=== PATIENT | female | born 1955 | race Caucasian/White ===

== ENCOUNTER → 2019-09-18 10:24 | Outpatient (CLI) | payer BC, SELFPAY ==
--- NOTE | ~2019-09-18 | MM_ITS ---
EXAMINATION: MM screening josue BI w connie HISTORY: Screening mammogram TECHNIQUE: Craniocaudal and mediolateral oblique 3-D tomosynthesis images were obtained and synthetic 2-D images were generated. CAD analysis was submitted and interpreted. COMPARISON: 08/13/2016, 12/04/2013 bilateral digital screening mammogram examinations BREAST PARENCHYMAL COMPOSITION: There are scattered areas of fibroglandular density. FINDINGS: There is no evidence of suspicious mass, calcification, or architectural distortion to sugg est malignancy in either breast. There has been no suspicious interval change. IMPRESSION: 1. No mammographic evidence of malignancy. 2. Recommend routine screening mammography in one year. BI-RADS Category 1: Negative Reviewed, dictated and finalized at location A. [facility] [employer]
== END ==
PROVIDERS: Visit Provider Advanced Practice Midwife
DX: Z12.31 Encounter for screening mammogram for malignant neoplasm of breast (principal)
CPT/HCPCS: 77063; 77067

== ENCOUNTER 2020-04-09 14:36 | Outpatient (CLI) | payer BC, SELFPAY ==
--- NOTE | ~2020-04-09 | XR_ITS ---
EXAMINATION: XR chest 2V 04/09/2020 14:59 INDICATION: Bilateral rib pain and flank pain PROCEDURE: 2 views of the chest COMPARISON: 07/11/2015 FINDINGS: The lungs are clear. The cardiomediastinal silhouette is within normal limits. There are no pleural effusions. There is no pneumothorax suspected. IMPRESSION: 1: NO ACUTE CARDIOPULMONARY DISEASE. Reviewed, dictated and finalized at location A.
== END 2020-04-09 14:37 | disposition home or self-care (01) ==
PROVIDERS: PCP Family Medicine; Visit Provider Family Medicine
DX: R07.81 Pleurodynia (principal)
CPT/HCPCS: 71046

== ENCOUNTER → 2020-04-16 10:45 | Outpatient (CLI) | payer BC, SELFPAY ==
--- NOTE | ~2020-04-16 | US_ITS ---
US abdomen complete DATE: 04/16/2020 11:14 INDICATION: Right upper quadrant abdominal pain TECHNIQUE: Real-time imaging and Doppler analysis of the abdomen COMPARISON: 11/28/2015 Limited abdominal ultrasound examination FINDINGS: No hepatic or pancreatic space-occupying mass lesion. Normal hepatopedal portal venous flow direction. No gallstones or gallbladder wall thickening or abnormal pericholecystic fluid collection . Negative sonographic Torres's sign. The common bile duct measures 3.1 mm, normal. Normal caliber of the abdominal aorta. The inferior vena cava is not well demonstrated. Normal splenic size. The right kidney measures approximately 9.5 cm length, the left kidney approximately 10.4 cm. Approxi mately 1 x 1.3 cm left renal cyst. IMPRESSION: Approximately 1.3 cm left renal cyst; otherwise unremarkable examination Reviewed, dictated and finalized at Location A. Reviewed, dictated and finalized at location B. IMPRESSION: Approximately 1.3 cm left renal cyst; otherwise unremarkable examin ation
== END ==
PROVIDERS: PCP Family Medicine; Visit Provider Family Medicine
DX: R10.10 Upper abdominal pain, unspecified (principal); N28.1 Cyst of kidney, acquired
CPT/HCPCS: 76700

== ENCOUNTER 2020-05-06 01:23 | Outpatient (CLI) | payer BC, SELFPAY ==
[2020-05-06 17:41] LABS: SARS-CoV-2 RNA PCR Negative
== END 2020-05-06 01:24 | disposition home or self-care (01) ==
LOC: ANHCOVIDDT 01:23
PROVIDERS: PCP Family Medicine; Visit Provider Internal Medicine Gastroenterology
DX: Z01.812 Encounter for preprocedural laboratory examination (principal); Z20.828 Contact with and (suspected) exposure to other viral communicable diseases
CPT/HCPCS: 87635; C9803; U0003

== ENCOUNTER 2020-05-08 01:50 | Day surgery (SDC) | payer BC, SELFPAY ==
[2020-05-01 14:30] VITALS: BMI 30.4
[2020-05-08 12:04] VITALS: BP 126/46; PULSE 58; RESP 18; TEMP 36.7; O2SAT 100; BMI 30.8
[2020-05-08] MEDS: LACTATED RINGERS 1,000 ML 150 ML IV CONT (12:17)
--- NOTE | 2020-05-08 12:25 | WPDANESEPPF ---
Anes - Initial Pre Proc Eval Procedure: Operation Date: 05/08/20 13:00 Proposed Procedures p Screening Colonoscopy - Baltazar Cadet MD Date/Time: 05/08/20 12:25 Surgeon: Baltazar Cadet MD Pre Op Diagnosis: Neoplasm Screening Patient Data Age: 64 Gender: F Height: 5 ft 8 in Weight: 92 kg Last Vital Signs Temp 98.1 F 05/08/20 12:04 Pulse 58 L 05/08/20 12:04 Resp 18 05/08/20 12:04 BP 126/46 L 05/08/20 12:04 Pulse Ox 100 05/08/20 12:04 Allergies Allergy/AdvReac Type Severity Reaction Status Date / Time No Known Allergies Allergy Verified 05/08/20 12:03 Home Medications Medication Instructions Recorded Confirmed Type apixaban 5 mg tablet 5 mg PO BID 04/05/20 05/08/20 History lisinopril 20 mg tablet 20 mg PO DAILY 04/05/20 05/01/20 History metoprolol tartrate 100 mg tablet 100 mg PO DAILY 04/05/20 05/01/20 History simvastatin 40 mg tablet 40 mg PO DAILY 04/05/20 05/01/20 History spironolactone 25 mg tablet 25 mg PO DAILY 04/05/20 05/01/20 History polyethylene glycol 3350 17 gram 238 g PO DAILY #1 packet 04/16/20 05/01/20 Rx oral powder packet calcium carbonate-vitamin D3 1 tablet PO DAILY 05/01/20 05/01/20 History [Calcium 500 + D] melatonin 5 mg HS 05/01/20 05/01/20 History omeprazole magnesium [Prilosec OTC] 20 mg PO DAILY 05/01/20 05/01/20 History turmeric 400 mg PO DAILY 05/01/20 05/01/20 History vit H-jtowxpa-cytq-rutin-hb196 1 tablet PO DAILY 05/01/20 05/01/20 History [Bioflex] sodium,potassium,mag sulfates 17.5 See Rx Instructions PO .COMPLEX 05/03/20 Rx gram-3.13 gram-1.6 gram oral soln #354 ml Patient hx anesthesia problems: none Family hx anesthesia problems: none PMFSH Past Medical History Medical History (Updated 05/08/20 @ 12:24 by Deangelo Stevens MD) Atrial fibrillation pt states has cardiomyopathy and AF; not dcumented in chart; see cardiology at [facility] GERD (gastroesophageal reflux disease) HLD (hyperlipidemia) (06/29/11) HTN (hypertension) (06/29/11) Idiopathic cardiomyopathy Surgical History Surgical History History of left oophorectomy History of lumbar surgery History of tubal ligation History of vein stripping L5 Presence of right artificial knee joint Family History Family History Father Hypertension Mother Hypertension Family history of coronary artery disease Other Cerebrovascular accident Family history of arthritis Family history of cardiovascular disease Family history of elevated blood lipids Family history of gout Social History Social History Smoking status: Never smoker Alcohol intake: current Alcohol use details: Rarely Substance use: never Substance use type: does not use Gender identity (if verbalized by the patient): Female Anes - Eval Final PreProcedure Day of Procedure 05/08/20 12:25 Patient weight: normal Heart: regular rate and rhythm Lungs: clear to auscultation Airway: Mallampati scale class II Neurological: alert and oriented Last oral intake: >/= 8 hours ASA classification: III Emergent: no Anesthetic plan: proceed Anesthesia type and monitoring: general GIVS and standard monitoring Informed Consent: The patient's anesthetic plan and its attendant risks and benefits were discussed with the patient/family/POA. Questions were solicited and answers provided to the satisfaction of the patient/family/POA.
--- NOTE | 2020-05-08 12:56 | PM.HPGS ---
History of Present Illness History of Present Illness Consent: Risks, benefits, and alternatives have been discussed and questions answered. Patient agrees to proceed with procedure. Chief complaint: Neoplasm Screening Narrative: Madiha Carney is a 64 year old female here for colonoscopy, last one 6 years ago Review of Systems Constitutional: Constitutional: Denies headache(s) and Denies weakness Eyes: Eyes: Denies blurry vision ENT: Reports Normal hearing present, Denies headache(s) and Denies neck pain Cardiovascular: Cardiovascular: Denies chest pain and Denies dyspnea Respiratory: Respiratory: Denies dyspnea Gastrointestinal: Gastrointestinal: Reports no additional gastrointestinal complaints Genitourinary: Genitourinary: Denies dysuria Musculoskeletal: Musculoskeletal: Denies neck pain Integumentary/Breasts: Skin/Breast: Denies dry skin Neurologic: Reports Normal hearing present, Denies headache(s) and Denies weakness Psychiatric: Psychiatric: Denies anxiety Endocrine: Endocrine: Denies change in body appearance Hematologic/Lymphatic: Hematologic/Lymphatic: Denies easy bleeding Allergic/Immunologic: Allergic/Immunologic: Denies urticaria PMFSH Past Medical History Medical History (Updated 05/08/20 @ 12:56 by Baltazar Cadet MD) Atrial fibrillation pt states has cardiomyopathy and AF; not dcumented in chart; see cardiology at [facility] Colon cancer screening GERD (gastroesophageal reflux disease) HLD (hyperlipidemia) (06/29/11) HTN (hypertension) (06/29/11) Idiopathic cardiomyopathy Surgical History Surgical History History of left oophorectomy History of lumbar surgery History of tubal ligation History of vein stripping L5 Presence of right artificial knee joint Family History Family History Father Hypertension Mother Hypertension Family history of coronary artery disease Other Cerebrovascular accident Family history of arthritis Family history of cardiovascular disease Family history of elevated blood lipids Family history of gout Social History Social History Smoking status: Never smoker Alcohol intake: current Alcohol use details: Rarely Substance use: never Substance use type: does not use Gender identity (if verbalized by the patient): Female Meds Home Medications and Allergies Home Medications Medication Instructions Recorded Confirmed Type apixaban 5 mg tablet 5 mg PO BID 04/05/20 05/08/20 History lisinopril 20 mg tablet 20 mg PO DAILY 04/05/20 05/01/20 History metoprolol tartrate 100 mg tablet 100 mg PO DAILY 04/05/20 05/01/20 History simvastatin 40 mg tablet 40 mg PO DAILY 04/05/20 05/01/20 History spironolactone 25 mg tablet 25 mg PO DAILY 04/05/20 05/01/20 History polyethylene glycol 3350 17 gram 238 g PO DAILY #1 packet 04/16/20 05/01/20 Rx oral powder packet calcium carbonate-vitamin D3 1 tablet PO DAILY 05/01/20 05/01/20 History [Calcium 500 + D] melatonin 5 mg HS 05/01/20 05/01/20 History omeprazole magnesium [Prilosec OTC] 20 mg PO DAILY 05/01/20 05/01/20 History turmeric 400 mg PO DAILY 05/01/20 05/01/20 History vit Q-yteetsg-leip-rutin-hb196 1 tablet PO DAILY 05/01/20 05/01/20 History [Bioflex] sodium,potassium,mag sulfates 17.5 See Rx Instructions PO .COMPLEX 05/03/20 Rx gram-3.13 gram-1.6 gram oral soln #354 ml Allergies Allergy/AdvReac Type Severity Reaction Status Date / Time No Known Allergies Allergy Verified 05/08/20 12:03 Vital Signs Vital Signs - 24 hr 05/08/20 12:04 Temperature 98.1 F Pulse Rate 58 L Respiratory Rate 18 Blood Pressure 126/46 L Pulse Oximetry 100 Exam Const: General: comfortable and no acute distress HENMT: General nose exam: Normal nares present Eyes: General: appearance normal, both
[2020-05-08 13:16] VITALS: BP 92/55; PULSE 76; RESP 18; O2SAT 98
[2020-05-08 13:26] VITALS: BP 96/51; PULSE 79; RESP 16; O2SAT 98
[2020-05-08 13:36] VITALS: BP 120/65; PULSE 78; RESP 18; O2SAT 98
== END 2020-05-08 13:53 | disposition home or self-care (01) ==
PROVIDERS: PCP Family Medicine; Visit Provider Internal Medicine Gastroenterology
PROC: 0DJD8ZZ Inspection of Lower Intestinal Tract, Via Natural or Artificial Opening Endoscopic (ICD-10-PCS; CPT 45378; principal; 2020-05-08 13:00)
DX: Z12.11 Encounter for screening for malignant neoplasm of colon (principal); K64.8 Other hemorrhoids; I48.91 Unspecified atrial fibrillation; I10 Essential (primary) hypertension; E78.5 Hyperlipidemia, unspecified; I42.9 Cardiomyopathy, unspecified; K21.9 Gastro-esophageal reflux disease without esophagitis; Z79.01 Long term (current) use of anticoagulants
CPT/HCPCS: 45378; J2704; J7120

== ENCOUNTER 2022-03-03 12:53 | Emergency (ER) | payer BC, SELFPAY ==
[2022-03-03 12:57] VITALS: BP 148/64; PULSE 86; RESP 14; TEMP 36.6; O2SAT 98
--- NOTE | 2022-03-03 13:56 | ED.WOUNDLAC ---
HPI - Wound/Laceration General Chief Complaint: Wound/Laceration <Janneth Vasquez MD - Last Filed: 03/03/22 22:25> Stated Complaint: bleeding varicose vein <Janneth Vasquez MD - Last Filed: 03/03/22 22:25> Time Seen by Provider: 03/03/22 13:32 <Janneth Vasquez MD - Last Filed: 03/03/22 22:25> Source: patient and RN notes reviewed <Janneth Vasquez MD - Last Filed: 03/03/22 22:25> Mode of arrival: EMS <Janneth Vasquez MD - Last Filed: 03/03/22 22:25> Limitations: no limitations <Janneth Vasquez MD - Last Filed: 03/03/22 22:25> History of Present Illness HPI narrative: This is a 66 year old female with history of atrial fibrillation and cardiomyopathy on Eliquis who presents for evaluation of bleeding left ankle varicose vein. Patient reports she had significant varicose vein on her left ankle. She notes having what looks like a pimple and today it came off. She reports bleeding from area was quirting and they were unable to get bleeding to stop. The area was bandage but she is still having some bleeding. <Janneth Vasquez MD - Last Filed: 03/03/22 22:25> Related Data Home Medications: Home Medications Medication Instructions Recorded Confirmed apixaban 5 mg tablet (Eliquis) 5 mg PO BID 04/05/20 05/08/20 lisinopril 20 mg tablet 20 mg PO DAILY 04/05/20 05/01/20 metoprolol tartrate 100 mg tablet 100 mg PO DAILY 04/05/20 05/01/20 simvastatin 40 mg tablet 40 mg PO DAILY 04/05/20 05/01/20 spironolactone 25 mg tablet 25 mg PO DAILY 04/05/20 05/01/20 calcium carbonate 500 mg-vitamin 1 tablet PO DAILY 05/01/20 05/01/20 D3 10 mcg (400 unit) chewable tablet (Calcium 500 + D) melatonin 5 mg capsule 5 mg HS 05/01/20 05/01/20 omeprazole magnesium 20 mg 20 mg PO DAILY 05/01/20 05/01/20 tablet,delayed release (Prilosec OTC) turmeric 400 mg capsule 400 mg PO DAILY 05/01/20 05/01/20 vit 1 tablet PO DAILY 05/01/20 05/01/20 M-queqtnb-iktjqezzt-rutin-vasw853 500 mg-50 mg-25 mg-40 mg tablet (Bioflex) <Janneth Vasquez MD - Last Filed: 03/03/22 22:25> Allergies/Adverse Reactions: Allergies Allergy/AdvReac Type Severity Reaction Status Date / Time No Known Allergies Allergy Verified 03/03/22 13:01 <Janneth Vasquez MD - Last Filed: 03/03/22 22:25> Review of Systems Review of Systems: All systems reviewed & are unremarkable except as noted in HPI and below <Janneth Vasquez MD - Last Filed: 03/03/22 22:25> [facility] Past Medical History Medical History: Medical History (Updated 03/03/22 @ 16:52 by Janneth Vasquez MD) Atrial fibrillation pt states has cardiomyopathy and AF; not dcumented in chart; see cardiology at [facility] Colon cancer screening GERD (gastroesophageal reflux disease) HLD (hyperlipidemia) (06/29/11) HTN (hypertension) (06/29/11) Idiopathic cardiomyopathy <Janneth Vasquez MD - Last Filed: 03/03/22 22:25> Surgical History Surgical History: Surgical History History of left oophorectomy History of lumbar surgery History of tubal ligation History of vein stripping L5 Presence of right artificial knee joint <Janneth Vasquez MD - Last Filed: 03/03/22 22:25> Family History Family History: Family History Father Hypertension Mother Hypertension Family history of coronary artery disease Other Cerebrovascular accident Family history of arthritis Family history of cardiovascular disease Family history of elevated blood lipids Family history of gout <Janneth Vasquez MD - Last Filed: 03/03/22 22:25> Social History Social History: Social History Smoking status: Never smoker Alcohol intake: current Alcohol use details: Rarely Substance use: never Substance use type: does not use Gender identity (if verbal
[2022-03-03] MEDS: ONDANSETRON HCL ODT 4 MG TABLET PO (14:11)
[2022-03-03] MEDS: TETANUS,DIPHTHERIA,AC PERTUSSIS ADULT (0.5 ML) BOOSTRIX IM (14:11)
[2022-03-03] MEDS: HYDROcodone/acetaminophen (*CRX) 5-325 MG TABLET 1 TAB PO (14:15)
[2022-03-03] MEDS: LIDOCAINE, EPINEPHRINE, TETRACAINE VISCOUS SOLN 3 ML TOPICAL (15:48)
[2022-03-03] MEDS: CELLULOSE OXIDIZED 2 x 14 INCH 1 PKT XX (15:48)
--- NOTE | 2022-03-03 15:51 | PC.NURSE ---
Addendum entered by Zandra Schultz RN 03/03/22 16:34: patient privacy Original Note: Pt family was using hospital wheelchair to sit in hallway. 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
== END 2022-03-03 17:00 | disposition home or self-care (01) ==
PROVIDERS: Emergency Provider General Practice; PCP Family Medicine
DX: I83.892 Varicose veins of left lower extremity with other complications (principal); Z23 Encounter for immunization; I48.91 Unspecified atrial fibrillation; E78.5 Hyperlipidemia, unspecified; I10 Essential (primary) hypertension; I42.8 Other cardiomyopathies; K21.9 Gastro-esophageal reflux disease without esophagitis; Z90.721 Acquired absence of ovaries, unilateral; Z96.651 Presence of right artificial knee joint; Z79.01 Long term (current) use of anticoagulants
CPT/HCPCS: 12001; 90471; 90715; 99283; A9270

== ENCOUNTER 2022-09-28 08:02 | Outpatient (CLI) | payer MEDICARE, SELFPAY ==
[2022-09-28 08:52] LABS: Alanine Aminotransferase 27 U/L (14-59); Albumin Level 4.2 g/dL (3.4-5.0); Alkaline Phosphatase 63 U/L (46-116); Anion Gap 7 mmol/L (8-16); Aspartate Amino Transferase 17 U/L (15-37); Bilirubin,Total 0.5 mg/dL (0.00-1.00); Blood Urea Nitrogen 19 mg/dL (7-18); Calcium 9.5 mg/dL (8.5-10.1); Carbon Dioxide 30 mmol/L (21-32); Chloride 107 mmol/L (98-108); Cholesterol 176 mg/dL (0-200); Estimated Glomerular Filt Rate > 60; Glucose 87 mg/dL (70-99); HDL Direct 75 mg/dL (40-60); LDL Cholesterol Calculated 86 mg/dL (<130); Osmolality Calculated 299 mOsm/kg (285-295); Potassium 4.2 mmol/L (3.5-5.1); Sodium 144 mmol/L (136-145); Total Protein 7.4 g/dL (6.4-8.2); Triglycerides 74 mg/dL (0-150)
== END 2022-09-28 08:03 | disposition home or self-care (01) ==
LOC: CHSLAB 08:08
PROVIDERS: PCP Nurse Practitioner Family
DX: E78.2 Mixed hyperlipidemia (principal)
CPT/HCPCS: 36415; 80053; 80061

== ENCOUNTER 2022-12-10 09:42 | Outpatient (CLI) | payer MEDICARE, SELFPAY ==
[2022-12-10 10:40] LABS: Rheumatoid Factor Screen Negative (Negative)
[2022-12-10 10:54] LABS: Free T4 Free Thyroxine 1.23 ng/dL (0.76-1.46); Thyroid Stimulating Hormone 2.11 uIU/mL (0.36-3.74)
[2022-12-10 10:55] LABS: CRP < 0.5 mg/dL (0.0-0.9)
[2022-12-15 19:49] LABS: Vitamin D 25 Hydroxy 73 ng/mL (30-100)
== END 2022-12-10 09:43 | disposition home or self-care (01) ==
LOC: CHSLAB 09:45
PROVIDERS: PCP Nurse Practitioner Family; Visit Provider Nurse Practitioner Family
DX: R63.5 Abnormal weight gain (principal); Z79.899 Other long term (current) drug therapy; M89.8X9 Other specified disorders of bone, unspecified site
CPT/HCPCS: 36415; 82306; 84439; 84443; 86038; 86140; 86430

== ENCOUNTER → 2022-12-16 13:03 | Outpatient (CLI) | payer MEDICARE, OTHER, SELFPAY ==
--- NOTE | ~2022-12-16 | DEXA_ITS ---
Bone Density Report Name: LINO REGALADO Age: 67 Sex: Female Ethnicity: White Date of : 1955 Indication: postmenopausal; screening for osteoporosis; parental hip fracture; height loss; Referring Provider: Yoselyn, Mariia Ly Study: Bone densitometry was performed. Exam Date: December 16, 2022 Accession number: [id number] Bone Density: Region BMD T-score Z-score Classification AP Spine (L1-L4) 1.121 0.7 2.4 Normal Femoral Neck (Left) 1.009 1.4 3.0 Normal Total Hip (Left) 1.077 1.1 2.3 Normal Femoral Neck (Right) 0.911 0.6 2.1 Normal Total Hip (Right) 1.005 0.5 1.8 Normal Total Hip Mean 1.041 0.8 2.1 Normal World Health Organization criteria for BMD impression classify patients as: Normal (T-score at or above -1.0), Osteopenia (T-score between -1.0 and -2.5), or Osteoporosis (T-score at or below -2.5). 10-year Fracture Risk: FRAX not reported because: All T-scores for Spine Total, Hip Total, Femoral Neck at or above -1.0 Previous Exams: Region Exam Age BMD T-score BMD Change BMD Change Date g/cm2 vs Baseline vs Previous AP Spine(L1-L4) 12/16/2022 67 1.121 0.7 0.043* 0.043* 07/06/2011 55 1.077 0.3 Total Hip(Left) 12/16/2022 67 1.077 1.1 -0.043* -0.043* 07/06/2011 55 1.120 1.5 Total Hip(Right) 12/16/2022 67 1.005 0.5 -0.028* -0.028* 07/06/2011 55 1.033 0.7 *Denotes significance at 95% confidence level, LSC for AP Spine = 0.022 g/cm2, LSC for Total Hip = 0.027 g/cm2 Clinical Information Provided by Patient: Parent has had a hip fracture Has used the following medications: Calcium, MTV Patient maximum height was 68.0 Menopause Age: 46 No regular weight bearing exercise Drinks caffeinated beverages Onset of menses at age 17 Number of children 2 Impression: The patient has normal bone mass. The patient has risk factors, including: parental hip fracture. The BMD for the Total Hip(Left) decreased, changing by -0.043 since the last DXA exam. The BMD for the Total Hip(Right) decreased, changing by -0.028 since the last DXA exam. Discussion: BONE DENSITY IS ABOVE THE MINIMUM DESIRABLE LEVEL AT ALL SKELETAL SITES TESTED. This patient?s bone mineral density is above the minimum desirable level (T-score -1.0 or better) at all sites measured. The patient should follow a healthful lifestyle (good nutrition with adequate calcium and vitamin D, and appropriate weight-bearin
--- NOTE | ~2022-12-16 | MM_ITS ---
EXAMINATION: MM screening josue BI w connie HISTORY: Screening mammogram TECHNIQUE: Craniocaudal and mediolateral oblique 3-D tomosynthesis images were obtained and synthetic 2-D images were generated. CAD analysis was submitted and interpreted. COMPARISON: 09/18/2019, 08/13/2016, 12/04/2013 bilateral screening mammogram examinations BREAST PARENCHYMAL COMPOSITION: There are scattered areas of fibroglandular density. FINDINGS: There is no evidence of suspicious mass, calcification, or architectural distortion to sugg est malignancy in either breast. There has been no suspicious interval change. IMPRESSION: 1. No mammographic evidence of malignancy. 2. Recommend routine screening mammography in one year. BI-RADS Category 1: Negative Reviewed, dictated and finalized at location A.
== END ==
PROVIDERS: PCP Nurse Practitioner Family; Visit Provider Nurse Practitioner Obstetrics & Gynecology
DX: Z12.31 Encounter for screening mammogram for malignant neoplasm of breast (principal); Z78.0 Asymptomatic menopausal state; M81.0 Age-related osteoporosis without current pathological fracture
CPT/HCPCS: 77063; 77067; 77080

== ENCOUNTER 2023-11-05 09:09 | Outpatient (CLI) | payer MEDICARE, OTHER, SELFPAY ==
--- NOTE | ~2023-11-05 | XR_ITS ---
AP view of the pelvis and AP and lateral views of the bilateral hips Clinical history: Pain Findings: No acute fracture or dislocation is seen. There is moderate degenerative change of the left hip joint. There is minimal degenerative change of the right hip joint. Soft tissues are unremarkabl e. Impression: Moderate left hip joint degenerative change. Minimal right hip joint degenerative change. Reviewed, dictated and finalized at location . Impression: Moderate left hip joint degenerative change. Minimal right hip joint degenerative change.
--- NOTE | ~2023-11-05 | XR_ITS ---
Left Knee Technique: AP, lateral, and sunrise views were obtained. Clinical History: Osteoarthritis Findings: No fracture or dislocation is seen. There is advanced tricompartmental osteophyte formation with medial compartment narrowing.. Small joint effusion is seen. Impression: Advanced tricompartmental osteoarthritis. Small joint effusion. Reviewed, dictated and finalized at location . Impression: Advanced tricompartmental osteoarthritis. Small joint effusion.
== END 2023-11-05 09:10 | disposition home or self-care (01) ==
LOC: ANHIMG 09:15
PROVIDERS: PCP Orthopaedic Surgery; Visit Provider Orthopaedic Surgery
DX: M17.12 Unilateral primary osteoarthritis, left knee (principal); M16.0 Bilateral primary osteoarthritis of hip; M25.462 Effusion, left knee
CPT/HCPCS: 73521; 73564

== ENCOUNTER 2024-02-09 09:33 | Outpatient (CLI) | payer MEDICARE, OTHER, SELFPAY ==
--- NOTE | 2024-02-09 10:04 | ECG_ITS ---
Test Date: 2024-02-09 10:08:54 Measurements Intervals [place] Rate: 61 P: 19 MS: 156 QRS: -24 QRSD: 146 T: 11 QT: 413 QTc: 418 Interpretive Statements SINUS RHYTHM LEFT BUNDLE BRANCH BLOCK ABNORMAL ECG No previous ECG available for comparison Electronically Signed On 02-09-2024 12:30:55 CDT by Awais Amador D.O.
[2024-02-09 10:18] LABS: Hematocrit 41.1 % (37.0-47.0); Hemoglobin 13.7 g/dL (12.0-15.0)
[2024-02-09 10:31] LABS: Albumin Level 4.8 g/dL (3.5-5.1); Estimated Glomerular Filt Rate > 60; Glucose 86 mg/dL (65-110)
== END 2024-02-09 09:34 | disposition home or self-care (01) ==
PROVIDERS: PCP Nurse Practitioner Family; Visit Provider Orthopaedic Surgery
DX: I10 Essential (primary) hypertension (principal); M16.12 Unilateral primary osteoarthritis, left hip; E78.5 Hyperlipidemia, unspecified; I44.7 Left bundle-branch block, unspecified; Z01.818 Encounter for other preprocedural examination
CPT/HCPCS: 36415; 82040; 82565; 82947; 85014; 85018; 93005

== ENCOUNTER 2024-05-08 13:38 | Outpatient (CLI) | payer MEDICARE, OTHER, SELFPAY ==
--- NOTE | ~2024-05-08 | XR_ITS ---
XR knee LT min 4V Ordering provider: Herrera Bernard MD History: . M17.12 - Unilateral primary osteoarthritis, left knee . Comparison: November 05, 2023 FINDINGS: BONES: No acute fracture or dislocation. JOINT SPACES: Narrowing of the medial compartment. Marginal osteophyte in the suprapatellar. SOFT TISSUES: Serpiginous shadows are seen in the subcutaneous tissues suggestive of varicosities. Cl inical evaluation advised. IMPRESSION: No acute osseous abnormality left knee. Severe osteoarthritic changes. Reviewed, dictated and finalized at location A.
== END 2024-05-08 13:39 | disposition home or self-care (01) ==
LOC: ANHIMG 13:41
PROVIDERS: PCP Clinical Nurse Specialist; Visit Provider Orthopaedic Surgery
DX: M17.12 Unilateral primary osteoarthritis, left knee (principal)
CPT/HCPCS: 73564

== ENCOUNTER 2024-06-29 08:22 | Outpatient (CLI) | payer MEDICARE, OTHER, SELFPAY ==
[2024-06-29 13:36] LABS: Basophils Percent Auto 0.6 % (0.2-1.2); Eosinophils Absolute Auto 0.1 K/mm3 (0-0.3); Eosinophils Percent Auto 1.5 % (0-4.4); Hematocrit 40.3 % (37.0-47.0); Hemoglobin 12.9 g/dL (12.0-15.0); Immature Granulocyte Absolute 0.01 K/mm3 (0.00-0.031); Immature Granulocyte Percent A 0.2 % (0-0.5); Lymphocytes Absolute Auto 1.59 K/mm3 (0.9-3.2); Lymphocytes Percent Auto 29.7 % (18.3-44.2); Mean Corpuscular Hemoglobin 30.5 pg (26-34); Mean Corpuscular Volume 95.3 fl (80-100); Mean Platelet Volume 10.6 fl (7.4-10.4); Monocytes Absolute Auto 0.4 K/mm3 (0.1-0.6); Monocytes Percent Auto 7.6 % (2.6-8.5); Neutrophils Absolute Auto 3.2 K/mm3 (1.3-6.7); Neutrophils Percent Auto 60.4 % (45.5-73.1); Platelet Count Result 243 k/mm3 (150-375); Red Blood Count 4.23 M/mm3 (4.2-5.4); Red Cell Distribution Width 12.3 % (11.5-14.5); White Blood Count 5.4 K/mm3 (4.5-10.0)
[2024-06-29 13:59] LABS: Rheumatoid Factor < 12.0 IU/ML (<12)
[2024-06-29 14:01] LABS: Alanine Aminotransferase 21 U/L (6-35); Albumin Level 4.6 g/dL (3.5-5.1); Alkaline Phosphatase 68 U/L (38-126); Anion Gap 4 mmol/L (4-12); Aspartate Amino Transferase 54 U/L (14-36); Bilirubin,Total 0.6 mg/dL (0.2-1.3); Blood Urea Nitrogen 24 mg/dL (7-17); CRP < 0.5 mg/dL (<1.0); Calcium 9.7 mg/dL (8.4-10.2); Carbon Dioxide 28 mmol/L (22-30); Chloride 107 mmol/L (98-107); Cholesterol 252 mg/dL (0-200); Estimated Glomerular Filt Rate > 60; Glucose 81 mg/dL (65-110); HDL Direct 58 mg/dL; Potassium 4.6 mmol/L (3.4-5.0); Sodium 139 mmol/L (137-145); Triglycerides 137 mg/dL (<150)
[2024-06-29 14:13] LABS: LDL Cholesterol Direct 134 mg/dL
[2024-06-29 14:48] LABS: Erythrocyte Sedimentation Rate 14 mm/hr (0-20)
[2024-06-29 15:46] LABS: Vitamin D 25 Hydroxy 84.3 ng/mL
[2024-06-29 16:17] LABS: Hemoglobin A1C 5.1 % (<5.7)
[2024-06-30 07:25] LABS: ANA Cascade Screen NEGATIVE (NEGATIVE)
== END 2024-06-29 08:23 | disposition home or self-care (01) ==
LOC: ANHGOSHLAB 08:24
PROVIDERS: PCP Clinical Nurse Specialist; Visit Provider Clinical Nurse Specialist
DX: R63.5 Abnormal weight gain (principal); I10 Essential (primary) hypertension; E78.5 Hyperlipidemia, unspecified; I44.7 Left bundle-branch block, unspecified; I48.91 Unspecified atrial fibrillation; E55.9 Vitamin D deficiency, unspecified; G47.00 Insomnia, unspecified; R73.9 Hyperglycemia, unspecified; I83.892 Varicose veins of left lower extremity with other complications; M79.10 Myalgia, unspecified site
CPT/HCPCS: 36415; 80053; 80061; 82306; 83036; 84443; 85025; 85652; 86038; 86140; 86225; 86235; 86364; 86430

== ENCOUNTER 2024-09-29 08:46 | Outpatient (CLI) | payer MEDICARE, OTHER, SELFPAY ==
--- NOTE | ~2024-09-29 | MR_ITS ---
MRI of the right ankle Clinical history: Achilles tendinitis Technique: Coronal proton-density and proton-density fat-sat images, axial proton-density and proton- density fat-sat images, and sagittal proton-density and proton-density fat-sat images were acquired. Findings: Syndesmotic ligaments are intact. Anterior and posterior talofibular ligaments, and calcane ofibular ligament are intact. Deltoid ligament is intact. Medial flexor tendons, peroneal tendons, anterior extensor tendons are intact. There is severe Achill es tendinosis with high-grade partial tearing at the distal tendon at and just proximal to the insert ion of the calcaneus. No complete rupture evident. No osteochondral lesion of the talar dome. Bone marrow signals and joint spaces are intact. Plantar f ascia intact. No soft tissue mass or fluid collection evident. Impression: High-grade partial tearing of the distal Achilles tendon with underlying advanced tendinosis. Reviewed, dictated and finalized at location . Impression: High-grade partial tearing of the distal Achilles tendon with underlying advanc ed tendinosis.
== END 2024-09-29 08:47 | disposition home or self-care (01) ==
LOC: MICIMG 08:48
PROVIDERS: PCP Clinical Nurse Specialist; Visit Provider Podiatrist Foot & Ankle Surgery
DX: M76.61 Achilles tendinitis, right leg (principal)
CPT/HCPCS: 73721

== ENCOUNTER 2024-10-04 08:27 | Outpatient (CLI) | payer MEDICARE, OTHER, SELFPAY ==
--- OUTSIDE RECORDS SUMMARY | 2024-10-04 08:52 | XMS_ITS | Clinical Summary ---
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 Name Role Phone Unavailable Primary Care Provider Unavailabl e Social History Tobacco Use Types Packs/Day Years Used Date Smoking Tobacco: Never Comments Unknown Sex and Gender Information Value Date Recorded Sex Assigned at Not on file Legal Sex Female 8:47 PM CDT Gender Identity Not on file Sexual Orientation Not on file Last Filed Vital Signs Vital Sign Reading Time Taken Comments Blood Pressure 162/80 06/30/2012 9:49 AM [employer] Pulse 70 06/30/2012 9:49 AM [employer] Temperature - - Respiratory Rate 18 06/30/2012 9:49 AM [employer] R egular Oxygen Saturation - - Inhaled Oxygen Concentration - - Weight 88 kg (194 lb) 06/30/2012 9:49 AM [employer] Height 168.9 cm (5' 6.5 ) 06/30/2012 9:49 AM [employer] Body Mass Index 30.84 06/30/2012 9:49 AM [employer] Plan of Treatment Health Maintenance Due Date Last Done Comments Colorectal Cancer Screening Colonoscopy (10 Years) 1955 Hepatitis C 09/22/1975 DTaP, Tdap and Td Vaccines ( 1 - Tdap) 1976 Mammogram Screening 1997 Zoster Vaccines (1 of 2) 09/22/2007 Dexa Scan (General) 2022 Pneumococcal Vaccine: 65+ Ye ars (1 of 1 - PCV) 2022 COVID-19 Vaccine ( - 2023-2 5 season) 2024 Influenza Adult (#1) 2024 RSV Immunization or 60+ Years (1 - 1-dose 75+ series) 2032 Meningococcal B Vaccine Aged Out No l onger eligible based on patient's age to complete this topic Meningococcal Vaccine Aged Out No veronica emeka eligible based on patient's age to complete this topic RSV Immunizations Under 20 Months Aged Out No longer eligible based on patient's age to complete this topic
--- OUTSIDE RECORDS SUMMARY | 2024-10-04 08:52 | XMS_ITS | Clinical Summary ---
[facility] Organization [facility] Address [address] [place] [address] Care Team Providers Care Records Coordinator Name Role Phone Keegan Smart DO Primary Care Provider Allergies No known active allergies Medications multivitamin tablet tablet take 1 tablet by oral route every day with food 0 09/01/19 13 Active celecoxib (CeleBREX) 200 mg capsule TAKE 1 CAPSULE BY MOUTH ONCE DAILY NEEDED FOR PAIN 05/21/20 23 Active calcium carbonate/mult ivitamin (MULTIVITAMIN- CALCIUM CARB ORAL) multivitamin Active TURMERIC ORAL Take by mouth Ac tive glucosam-guzman- twn1-E-joya-roshni sw 750 mg-644 mg- 30 mg-1 mg tablet Take by mouth Active cholecalcifero l, vitamin D3, (VITAMIN D3 ORAL) Take by mouth Active APPLE CIDER VINEGAR ORAL Take by mouth Act virgilio simvastatin (ZOCOR) 40 mg tablet Take 1 tablet (40 mg total) by mouth nightly 90 tablet 3 11/29/19 24 025 Active spironolactone (ALDACTONE) 25 mg tablet Take 1 tablet (25 mg total) by mouth daily 90 tablet 3 07/31/19 25 Active lisinopriL (PRINIVIL,ZEST RIL) 20 mg tablet Take 1 tablet (20 mg total) by mouth daily 90 tablet 3 07/31/19 25 Active apixaban (Eliquis) 5 mg tablet Take 1 tablet (5 mg total) by mouth 2 (two) times a day 180 tablet 3 07/31/19 25 Active latanoprost (XALATAN) 0.005 % ophthalmic solution Administer 1 drop into both eyes nightly 2.5 mL 3 09/13/19 25 Active metoprolol XL (TOPROL-XL) 100 mg 24 hr tablet TAKE 1 TABLET BY MOUTH DAILY 90 tablet 3 10/03/19 25 Active latanoprost (XALATAN) 0.005 % ophthalmic solution Administer 1 drop into both eyes nightly 2.5 mL 11 09/20/19 24 025 Discontinued metoprolol XL (TOPROL-XL) 100 mg 24 hr tablet Take 1 tablet (100 mg total) by mouth daily 90 tablet 3 11/29/19 24 025 Discontinued Active Problems Problem Noted Date Diagnosed Date Varicose veins of both lower extremities with pa in 12/11/2023 PVD (posterior vitreous detachment), right eye 1 08/16/2022 Assessment & Plan (06/16/2023 11:48 AM INGREDIENT SPECIALIST): 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; posterior hyaloid attached Endorses floaters for 6-8 months OU, stable No flashes 1 episode of flashes left eye (OS) 2 months ago CTM, return precautions discussed 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 Assessment & Plan (09/20/2023 10:27 PM INGREDIENT SPECIALIST): + Fam Hx glaucoma mother with NTG Tmax 1416 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 Paracentral defect No other risk factors or changes noted Paracentral defects both eyes (OU) noted on Amsler Thin CCT Discussed findings with pt Defer adding meds yet F/U 6-8 wks with Vazquez visual field (HVF) 10-2, OCT ganglion cell layer (GCL) with PM appt/IOP Plan: New RNFL and Vazquez visual field (HVF) changes on exam today SLT vs latanoprost, r/b/a of each discussed with patient Cystoid macular edema of left eye 06/16/2023 Assessment & Plan (06/16/2023 7:58 PM INGREDIENT SPECIALIST): Pt endorsing floaters both eyes (OU) for 6-8 months, 1 episode flashes 2 months ago left eye (OS) + Hx HTN, AFib, hx [place] OCT MAC: right eye (OD) WNL; left eye (OS) superotemporal peripapillary fluid with feathery hyperautofluorescence On exam, no IRH in pattern seen on OCT Mac, no vessel tortuosity, however small area ST with hyperpigmentation and reddish hue, no NVI/neovascularization of iris (NVA)/NVD Observe Depression 10/31/2021 Assessment & Plan (10/31/2021 12:02 PM CDT): As noted above this, I talked with her extensively today. I offered help in the form of antidepressant or sick looking at with counseling her other care. She refused all that adamantly. Asked her to call me if I could help. Venous hypertension 08/16/2020 Assessment & Plan (08/16/2020 10:19 AM INGREDIENT SPECIALIST): Given her significant varicose veins, I talked with Dr. Kiran today. We will ultrasound those to see if there is any evidence of reflux since she has had extensive vein stripping with 2 in the right and 1 on the left. 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 05/27/2020 Assessment & Plan (09/20/2023 10:31 PM INGREDIENT SPECIALIST): Intraocular pressure (IOP) borderline For ease, will add meds both eyes (OU Assessment & Plan (06/16/2023 7:57 PM INGREDIENT SPECIALIST): Tmax 16 +Fam Hx NTG mother NTG right eye (OD) HVF and RNFL full today Assessment & Plan (05/27/2020 11:51 AM INGREDIENT SPECIALIST): FH of low tension glaucoma (LTG) (mother) Remote hx of disc heme OCT stable with nl nerve fiber layer (NFL) (sup and inf) both eyes (OU), nasal thinning both eyes (OU) Full Vazquez visual field (HVF) Slightly thin OCT intraocular pressure (IOP) low teens F/U with Dr. Dudley and here prn any concerns Age-related nuclear cataract, bilateral 05/27/20 20 Assessment & Plan (09/20/2023 10:31 PM INGREDIENT SPECIALIST): Not VS- observe Assessment & Plan (06/16/2023 11:50 AM INGREDIENT SPECIALIST): Not VS- observe Assessment & Plan (05/27/2020 11:51 AM INGREDIENT SPECIALIST): Not VS- observe Paroxysmal atrial fibrillation 01/17/2020 Assessment & Plan (09/17/2023 10:16 AM INGREDIENT SPECIALIST): Her atrial fibrillation seems to be doing well. She remains on metoprolol XL for rate and rhythm control and Eliquis for thromboembolism. I will see her in 1 year. Assessment & Plan (03/05/2023 10:34 AM CDT): I think her atrial fibrillation is doing fine. I am not sure if the something in her chest when she got lightheaded was actually atrial fibrillation. However, even given that she continues on metoprolol XL for rate and rhythm control and she is protected from thromboembolism with Eliquis. Assessment & Plan (09/25/2022 11:23 AM INGREDIENT SPECIALIST): As noted above this, because of financial issues she is no longer able to afford Eliquis. She has almost 3 months of that left. I told her when she got within a month of being out of the Eliquis we could switch her to warfarin and we would have to get INRs check. She is aware of all of that. Otherwise, I want to see her back in 3 months. I actually wanted to get a monitor on her today and she refused that saying via the Internet. [place] the monitor was not able to connect. I did ask her to get a TSH and an echocardiogram which she was agreeable to. Assessment & Plan (10/31/2021 12:03 PM CDT): As noted above this, she is having trouble affording Eliquis. Her co-pay card runs out soon. She was going to call her insurance to see if Xarelto or Pradaxa was cheaper for her. We also talked about changing to Coumadin because it was cheaper but also that it does not protect her as much from thromboembolism. I will plan on seeing her in 6 months. She was not happy about coming back in 6 months. Assessment & Plan (08/16/2020 10:19 AM INGREDIENT SPECIALIST): She has had some fleeting palpitations that do not sound like atrial fibrillation. There has been nothing prolonged. Given that, I think we should continue the Eliquis as well as the metoprolol. Assessment & Plan (01/17/2020 8:54 AM CDT): With new onset atrial fibrillation, we switched her carvedilol to metoprolol XL and started Eliquis. I asked her to get a BMP to make sure renal function is still normal. Also, she needs a repeat echocardiogram. She has been quite anxious and not letting me do testing because she has such a large deductible but I think we have to at this point to ensure that her LV function is still normal since she has had a cardiomyopathy in the past. Sadly, at her insurance is off the market place now and apparently I am not in her network. I have referred her to Dr. Sarah Brown for further care at [facility] in [place]. I am certainly glad to see her if her insurance does change again. Nonischemic cardiomyopathy 02/11/2018 Assessment & Plan (09/17/2023 10:16 AM INGREDIENT SPECIALIST): We went over stress test today and I told her ventricle was normal which is great news. Assessment & Plan (03/05/2023 10:33 AM CDT): We went over echocardiogram today that demonstrates returned to normal LV function which is great. She says that she did not tell me earlier about the chest pain because she thought the echo having normal LV function meant that her chest pain was not cardiac. Assessment & Plan (09/25/2022 11:23 AM INGREDIENT SPECIALIST): With her ischemic cardiomyopathy, I asked her to get an echocardiogram. She is refused it previously because of cost but was agreeable to do that today. Assessment & Plan (08/16/2020 10:18 AM INGREDIENT SPECIALIST): I asked to continue her lisinopril, metoprolol and spironolactone. She asked every time whether she can stop her medicines and I always say no because of her past cardiomyopathy and that it took some time to recover. I will see her in 1 year. Assessment & Plan (02/11/2018 10:55 AM CDT): No signs or symptoms of CHF.Continue current medical regime. She will follow-up in 1 year due to insurance reasons versus 6 months time. Mixed hyperlipidemia 02/11/2018 Assessment & Plan (09/17/2023 10:04 AM INGREDIENT SPECIALIST): She had a lipid panel March 05, 2023 and her LDL was 72. Assessment & Plan (03/05/2023 10:34 AM CDT): She had a lipid panel October 03, 2022 and her LDL was 86. A point of care lipid panel today looks even better with an LDL of 72 Assessment & Plan (10/31/2021 12:03 PM CDT): She had a recent lipid panel so I did not repeat that. Assessment & Plan (08/16/2020 10:19 AM INGREDIENT SPECIALIST): We are calling your office to get her lipid panel. Assessment & Plan (02/11/2018 10:52 AM CDT): POC lipids done today. Her LDL is 102. Continue statin therapy. Heart healthy diet and exercise was encouraged. Hypertensive heart disease without heart failure 02/11/2018 Assessment & Plan (02/11/2018 10:49 AM CDT): Her blood pressure is well controlled. Continue current medications. Essential hypertension 08/06/2014 Overview (10/23/2016): Essential hypertension Assessment & Plan (09/17/2023 10:16 AM INGREDIENT SPECIALIST): Her blood pressure looks great today. I would not change her regimen. Also, I gave her Dr. Mynor Martino's name for her venous varicosities Assessment & Plan (03/05/2023 10:33 AM CDT): She initially was hypertensive on arrival like she often is secondary to her anxiety. It was much better on my recheck so I made no new changes. Assessment & Plan (09/25/2022 11:21 AM INGREDIENT SPECIALIST): Her blood pressure is normotensive today so I made no new changes. Assessment & Plan (10/31/2021 12:03 PM CDT): Despite her agitation, her blood pressure was good today I made no new changes. Resolved Problems Problem Noted Date Diagnosed Date Resolved Date Chest pain due to myocardial ischemia 03/05/2023 09/15/2023 Assessment & Plan (03/05/2023 10:35 AM CDT): The parts of her chest pain that she can remember definitely sound like angina. She certainly has risk factors to have coronary disease and so I have asked her to get a nuclear stress test. She can not walk on the treadmill secondary to multiple lower extremity joint pains. She was tearful today she often is when we need to do testing because of the financial constraints for her. However, she realized now that she has Medicare and supplemental is would likely be much cheaper for and was reassured with that. Surgical History Surgery Date Site/Laterality Comments BACK SURGERY back surgery TUBAL LIGATION Bilateral tubal ligation VEIN LIGATION AND STRIPPING Vein Stripping OTHER SURGICAL HISTORY L oopherectomy Medical History Medical History Date Comments Hypertension Hypertension Hx Other Medical hyperlipdemia Hx Other Medical Migraines Cataract Hyperlipidemia Arrhythmia Atrial fibrillation (HCC) Glaucoma Family History Medical History Relation Name Comments Heart attack Father Myocardial Infa rction; Cause of : Myocardial Infarction Glaucoma Mother Heart failure Mother Congestive Hea rt Failure; Cause of : Congestive Heart Failure Heart attack Sister 2 Myocardial Infa rction; Cause of : Myocardial Infarction Relation Name Status Comments Father (Age 67) Mother (Age 86) Sister 1 (Age 44) Sister 2 Social History Tobacco Use Types Packs/Day Years Used Date Smoking Tobacco: Never Passive Smoke Exposure: Never Smokeless Tobacco: Never Tobacco Cessation:Counseling Given: Not Answered Alcohol Use Standard Drinks/Week Comments Yes 0 (1 standard drink = 0.6 oz pur e alcohol) AUDIT-C Answer Date Recorded Q1: How often do you have a drink containing alc ohol? Monthly or less 12/08/2023 Q2: How many drinks containi ng alcohol do you have on a typical day when you are drinking? 1 or 2 12/08/2023 Q3: How often do you have si x or more drinks on one occasion? Never 12/08/2023 Personal Safety Answer Date Recorded Have you ever been in or are you currently in a harmful physical or emotional relationship or is someone making you feel afraid or unsafe? Denies 03/08/2023 Comments Unknown Sex and Gender Information Value Date Recorded Sex Assigned at Not on file Legal Sex Female 2:44 AM INGREDIENT SPECIALIST Gender Identity Not on file Sexual Orientation Not on file Obstetrics History Last Filed Vital Signs Vital Sign Reading Time Taken Comments Blood Pressure 137/73 12/08/2023 9:05 AM CDT Pulse 51 12/08/2023 9:05 AM CDT Temperature - - Respiratory Rate - - Oxygen Saturation 98% 09/17/2023 9:53 AM INGREDIENT SPECIALIST Inhaled Oxygen Concentration - - Weight 91.2 kg (201 lb) 08/16/2020 9:49 AM INGREDIENT SPECIALIST Height 172.7 cm (5' 8 ) 09/17/2023 9:53 AM INGREDIENT SPECIALIST Body Mass Index 30.56 08/16/2020 9:49 AM INGREDIENT SPECIALIST Plan of Treatment Health Maintenance Due Date Last Done Comments Breast Cancer Screening-Mammogram 1957 Colon Cancer Screening-Colonoscopy 1955 Depression Screening 1957 Fall Risk Assessment 1955 Hepatitis C Screening 1955 Osteoporosis Screening-Bone Density Scan 1957 DTaP/Tdap/Td Vaccine (1 - Tdap) 1968 Hepatitis B Screening 09/22/1975 Pneumococcal vaccine 65+ (1 of 1 - PCV) 09/22/2007 Zoster Vaccine (1 of 2) 09/22/2007 Well Visit 65+ 2022 Influenza Vaccine (#1) 2024 07/01/[address] [place] [address] [facility] MEDICARE [facility]ICARE [facility] Care Teams Records Coordinator Relationship Specialty Start Date End Date Keegan Smart DO [address] [place] [address] PCP - General Family Medicine 03/08/23
--- OUTSIDE RECORDS SUMMARY | 2024-10-04 08:52 | XMS_ITS | Data Portability ---
Author Organization [facility] [place] Address [address] [place] [address] [place] [address] Care Team Providers Care Clay Temperer Name Role Phone IRMA BALDWIN Primary Care Provider Assessment Encounter Date Assessment Date Assessment LastModified by Organization Details LastModified Time 05/14/2023 05/14/2023 Annual gynecological exam performed. Patient will come back in a year unless there are new symptoms. Suggest Calcium with Vitamin D if not eating in diet. Patient advised to get annual flu shot. Recommend yearly physicals and preform monthly breast exams. Genetic testing is available for patients with family history of cancer. Engage in safe sexual practices, use condoms. Encouraged to have daily exercise. Avoid tobacco and illicit drugs, moderation of alcohol. If BMI greater than 25 dietary consult advised. If you have any questions please call or email. Not available 05/14/2023 11:37:08 Plan of Treatment Reminders Order Date Submit Date Provider Last Modified By Organization Details Last Modified Time Details Appointments None recorded. Lab urinalysis , dipstick 2020 021 [facility], [address], [place], [address], 13:36:54 Referral None recorded. Procedures None recorded. Surgeries None recorded. Imaging MAMMO, screening, digital, bilateral 2020 021 [email or web address] [facility], [address], [place], [address], 1 10:57:25 bone density 2020 021 [email or web address] [facility], [address], [address] [address], [place], [address], 1 10:57:25 Medication Orders lidocaine HCl 2 % mucosal jelly 2022 023 [facility] [address] [place], [address], 3 11:51:19 Estrace 0.01% (0.1 mg/gram) vaginal cream [address] [place], [address], 3 10:46:45 lidocaine 5 % topical ointment [address] [place], [address], 3 10:46:50 lidocaine HCl 2 % mucosal jelly [address] [place], [address], 3 10:46:52 Patient TargetsNo targets recorded. Patient InstructionsNo instructions recorded. Reason for Referral None Reported. Results Created Date Observation Date Name Description Value Unit Range Abnormal Flag Note LastModifiedBy Organization Detail LastModifiedTime 01/08/20 21 01/07/2021 pap, IG + HR HPV image guided Pap, HPV regardless of Pap result SEE RESULT S BELOW CASE REPOR T: Cytol ogy Gynec ologi val Repor t Case: [id number] Autho sina de leon Provi crystal: Karina Salgado CNM Colle cted: 01/07 0942 Order ing Locat ion: [place] Path[facility] Recei lakshmi: 01/07 2320 First Scree n: Taurus Winters , CT Speci men: Scree jose Pap - Image d, Cervi x STATE MENT OF ADEQU ACY: Satis facto ry for evalu ation Trans forma tion zone compo nent prese nt FINAL DIAGN OSIS: Negat virgilio for Intra epith elial Lesio n or Emily stewart Elect sana hurstirineo johnathan d by Taurus Winters , CT on 2020 at 8:07 PM ----- ----- ----- ----- ----- ----- ----- ----- ----- ----- ----- ----- ----- ----- ----- ----- ----- ---- HPV RESUL TS: HPV mRNA E6/E7 : No HPV mRNA Detec jose de jesus NOTE: This high risk HPV mRNA assay detec ts fourt een high- risk HPV types (16, 18, 31, 33, 35, 39, 45, 51, 52, 56, 58, 59, 66, 68) witho ut diffe renti ation . CHART ABLE COMME NT: Note: This speci men was revie wed by a Cytot echno logis t and/o r Patho logis t (as indic ated in this repor t) after evalu ation using the Thinp rep Imagi ng Syste m. CLINI VAL INFOR MATIO N: Menst rual Statu s: LMP (if appli cable ): 005 Clini val Histo ry/Pr eviou s Pap: Type of Neopl bekah (if appli cable ): Other Histo ry: Hormo janiya (if appli cable ): PAP EDUCA JOSE L NOTE: The Pap Test is a scree jose test with an inher ent false negat virgilio rate. Liqui d-bas e sampl ing may decre ase, but will not elimi benigno, false negat virgilio resul ts. A negat virgilio resul t does not precl ude the prese nce and/o r devel opmen t of disea se, since the prese nce of abnor mal cells in the sampl e depen ds on the locat ion of the lesio n and sampl ing techn ique. Oli nued regul ar scree jose is the best metho d of cance r preve ntion . If repor jose de jesus cytol ogic findi ng do not corre late with physi val and/o r histo rical findi ngs, furth er inves tigat ion is recom devora d, as clini vikki nowak nted. Not Available [facility] (Lab) [address], [place], [address], 01/08/2021 21:11:17 12/24/19 23 DEXA, axial skele ton + verte bral fract ure asses sment No observ ation record ed. [email or web address] [facility] [address], [place], [address], 12/29/2022 16:00:19 Result Notes None recorded. 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 09:56:48 Dyspareu coral [id number] Completed 201201/06/2021 Dyspareu coral;Amaury rded Elsewher e: No Locat ion: [facility] S ource: EHR Trim Stencil Maker nahomy: N Practi ce ID: 0001 Neri lable Time: 02:00:00 PM Emily muñiz [facility] 09:56:[address] Concept Completed 201801/06/2021 Encntr for general adult medical exam w/o abnormal findings ;Recorde d Elsewher e: No Locat ion: [facility] S ource: EHR Prac ismael ID: 0001 Neir lable Time: 02:15:00 PM Emilyjosé luis muñiz [facility] 09:56:46 Female genital organ symptoms [id number] Completed 201201/06/2021 Unspecif ied symptom associat ed with female genital organs;R ecorded Elsewher e: No Locat ion: [facility] S ource: EHR Trim Stencil Maker nahomy: Y Snehati ce ID: 0001 Neri lable Time: 02:00:00 PM Emily muñiz, [facility] 09:56:39 Screenin g for malignan t neoplasm of cervix Completed 201301/06/2021 Pap Smear;Pr actice ID: 0001 Emily Williamson [facility], [facility] 09:56:36 Screenin g for malignan t neoplasm of rectum Completed 201301/06/2021 Screenin g for malignan t neoplasm s of the rectum;P ractice ID: 0001 Emily muñiz, [facility] 09:56:44 Leukopla elías of vulva [id number] Completed 201801/06/2021 Leukopla elías of vulva;Pr actice ID: 0001 Emily muñiz, [facility] 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 09:56:50 Adult health examinat ion Completed 201201/06/2021 Routine Medical Exam;Rec orded Elsewher e: No Locat ion: [facility] S ource: EHR Trim Stencil Maker nahomy: N Snehati ce ID: 0001 Neri lable Time: 02:00:00 PM Emily muñiz [facility] 09:56:41 Screenin g for malignan t neoplasm of colon Completed 201001/06/2021 Special screenin g for malignan t neoplasm s, colon;Pr actice ID: 0001 Emily Harrold mary kay [facility] 09:56:42 Problem Notes None recorded. Procedures Surgical History Date Name Laterality Status Provider Name and Address Organization Details Recorded Time 01/08/20 21 Date of Last Pap Smear completed Deirdre [facility] 05/11/2023 19:30:59 09/04/19 20 Date of Last Mammogram completed Emily Clay [facility] 01/06/2021 09:59:20 09/04/19 [facility] 01/06/2021 09:59:32 03/19/20 16 total replacement of right knee joint completed Emily Doran [facility] 01/06/2021 10:14:17 07/19/19 15 Date of Last [facility] 05/11/2023 19:35:14 07/19/19 15 completed Emily Doran [facility] 01/06/2021 10:13:14 07/19/19 15 Colonoscopy completed [facility] 05/11/2023 19:35:51 07/19/19 13 cardiomyoplasty operation [facility] 05/11/2023 19:36:28 07/19/18 98 [facility] 01/06/2021 10:17:43 07/19/18 94 Tubal Ligation [facility] 05/11/2023 19:35:40 07/19/18 93 procedure on back completed [facility] 01/06/2021 10:15:40 07/19/18 88 stripping of thoracic varicose veins completed [facility] 01/06/2021 10:15:18 07/19/18 86 stripping of thoracic varicose veins completed [facility] 01/06/2021 10:15:20 Imaging Results Imaging Date Name Status LastModified by Organiz ation Details LastModified Time 12/23/2022 DEXA, axial skeleton + vertebral fracture assessment completed [address], [place], [address], 12/29/2022 16:00:19 Procedure Notes None recorded. Medical Equipment None Reported. Allergies No known drug allergies Medications Name Sig Start Date Stop Date Status Note LastModified by Organization Details LastModified Time binaxnow cov kit home anastacia 05/13 completed Not Available Not Available Not Available celecoxib 200 mg capsule TAKE 1 CAPSULE BY MOUTH ONCE DAILY NEEDED FOR PAIN active Not Available Not Available No t Available carvedilo l 25 mg tablet take 1 tablet (25MG) by oral route 2 times every day with food 01/07 completed Prescrib ed Elsewher e: No [facility] od[facility] By: kenneth ibanez DateTime : 11/04/19 13 02:00:00 PM Not Available Not Available Not Available atorvasta tin 20 mg tablet take 1 tablet (20MG) by oral route every day 06/04 completed Prescrib ed Elsewher e: No [facility]at [facility] odify By: eli garcia DateTime : 11/04/19 13 02:00:00 PM Not Available Not Available Not Available lisinopri l 20 mg tablet TAKE 1 TABLET BY MOUTH ONCE DAILY active Not Available Not Available No t Available metoprolo l succinate ER 100 mg tablet,ex tended release 24 hr TAKE 1 TABLET BY MOUTH ONCE DAILY active Not Available Not Available No t Available clobetaso l 0.05 % topical cream apply by topical route 2 times every day a thin layer to the affected area(s) 06/04 completed Prescrib ed Elsewher e: No Locat ion: Alexandra marquez [facility] odify By: amchin Marquez ncounter DateTime : 03/05/20 14 10:28:10 AM Not Available Not Available Not Available lidocaine HCl 2 % mucosal jelly APPLY TO VAGINAL AREA NEEDED 2022 active Not Available Not Available Not Avai lable spironola ctone 25 mg tablet TAKE 1 TABLET BY MOUTH ONCE DAILY active Not Available Not Available No t Available simvastat in 40 mg tablet TAKE 1 TABLET BY MOUTH NIGHTLY active Not Available Not Available No t Available Macrobid 100 mg capsule take 1 capsule by oral route every 12 hours with food 01/06 completed Prescrib ed Elsewher e: No [facility]at [facility] odify By: kpanyik Misbah r DateTime : 09/04/19 20 11:00:00 AM Not Available Not Available Not Available meloxicam 7.5 mg tablet take 1 tablet (7.5MG) by oral route every day 06/04 completed Prescrib ed Elsewher e: No [facility]at [facility] odify By: amchin Marquez ncounter DateTime : 11/04/19 13 02:00:00 PM Not Available Not Available Not Available clobetaso l 0.05 % topical ointment apply by topical route a thin layer to the affected area(s) two nights per week 09/04 completed Prescrib ed Elsewher e: No Locat ion: [facility] odify By: jgumber Misbah r DateTime : 11/04/19 19 02:15:00 PM Not Available Not Available Not Available estradiol 0.01% (0.1 mg/gram) vaginal cream APPLY CREAM TOPICALL Y TO VULVAR SKIN 2-3 TIMES PER WEEK AT BEDTIME. 05/14 completed Not Available Not Available Not Available multivita min capsule take 1 capsule by oral route every day 01/07 completed Prescrib ed Elsewher e: Yes Loca tion: Alexandra marquez [facility] odify By: kenneth Crawley r DateTime : 11/04/19 13 02:00:00 PM Not Available Not Available Not Available Premarin 0.625 mg/gram vaginal cream insert (1G) by vaginal route every day cyclical ly, 3 weeks on and 1 week off 07/20 completed Prescrib ed Elsewher e: No Locat ion: Alexandra marquez [facility] odify By: yeyo Crawley r DateTime : 03/05/20 14 10:28:10 AM Not Available Not Available Not Available Calcio Yuko 500 mg tablet 01/07 completed Prescrib ed Elsewher e: Yes Loca tion: Alexandra marquez [facility] odify By: kenneth Crawley r DateTime : 11/04/19 13 02:00:00 PM Not Available Not Available Not Available simvastat in 02/20 completed Not Available Not Available Not Available spironola ctone 02/20 completed Not Available Not Available Not Available lisinopri l 02/20 completed Not Available Not Available Not Available metoprolo l succinate 02/20 completed Not Available Not Available Not Available multivita min active Not Available Not Available Not Available lidocaine 5 % topical ointment APPLY TO AFFECTED AREA(S) BY TOPICAL ROUTE NEEDED 05/14 completed Not Available Not Available Not Available Eliquis 5 mg tablet TAKE 1 TABLET BY MOUTH TWICE DAILY active Not Available Not Available No t Available Eliquis 02/20 completed Not Available Not Available Not Available melatonin 10 mg capsule 01/06 completed Prescrib ed Elsewher e: Yes Loca tion: Alexandra [facility] odify By: kenneth Crawley r DateTime : 11/04/19 13 02:00:00 PM Not Available Not Available Not Available Glydo 2 % mucosal jelly in applicato r APPLY JELLY TO VAGINAL AREA NEEDED active Not Available Not Available No t Available FloLipid 20 mg/5 mL (4 mg/mL) oral suspensio n take 5 millilit er by oral route every day in the evening 01/06 completed Prescrib ed Elsewher e: Yes [facility] By: jcj ibanez DateTime : 09/04/19 11:00:00 AM Not Available Not Available Not Available BinaxNOW COVID-19 Ag Self Test kit Use as Directed on the Package 05/13 completed Not Available Not Available Not Available Vitals Date Recorded Body height Systolic blood pressure Diastolic blood pressure Provider Name and Address Organization Details Last Updated DateTime 01/07/2021 165.1 cm 134 mm[Hg] 73 mm[Hg] Emily Williamson [facility] 01/07/2021 09:45:17 Date Recorded Systolic blood pressure Diastolic blood pressure Provider Name and Address Organization Details Last Updated DateTime 02/20/2022 128 mm[Hg] 76 mm[Hg] Abi Deleon [facility] 02/20/2022 09:48:44 Date Recorded Systolic blood pressure Diastolic blood pressure Provider Name and Address Organization Details Last Updated DateTime 05/14/2023 130 mm[Hg] 79 mm[Hg] Abi Benito [facility] 05/14/2023 10:46:25 Social History Question Answer Notes LastModified by Organizat ion Details LastModified Time Tobacco Smoking Status Never Smoker Abi Deleon [facility] 02/20/2022 09:49:08 How Much Tobacco Do You Smoke? No Information not available 02/20/2022 Do You Use Any Illicit Or Recreational Drugs? No Information not available 02/20/2022 Have You Used IV Drugs? No Information not available 02/20/2022 Sex: Unknown Functional Status None recorded. Mental Status None recorded. Family History Relationship Description Onset Age of this Age Resolved Age Notes LastModified by Organization Details LastModified Time Brother Atrial fibrillation Not available 11/2021 09:15:55 Father Hypertensive disorder [email or web address] Not available 2020 10:04:49 Father Heart disease Not available 2020 10:05:31 Mother Hypertensive disorder Not available 2020 10:04:55 Mother Heart disease [email or web address] Not available 2020 10:05:37 Unspecified Relation Cardiac arrhythmia Niece jose Not available 02/20 09:15:55 Sister Heart disease Not available 2020 10:06:15 Medical History Condition Response Allergies (Food, seasonal, environmental ) N Other Y Drug/Latex Allergies/Reactions N Breast Cancer N Blood Transfusion N Lung Disease N Dermatologic Disorders N Defects or Inherited Disease N Breast Problem N Gestational Diabetes N Hematologic disorders N Anesthesia Complications N History of STI N Deep Vein Thrombosis N Polycystic ovary syndrome N Anxiety Disorder N Autoimmune disease N Arthritis N Polyps N Infertility N History of abnormal pap N Acid Reflux (GERD) N Cancer N Varicosities N Stroke N Neurologic/Epilepsy Y Endometriosis N High Cholesterol Y Headaches N Fibromyalgia N Kidney Disease N Heart Problems Y Thyroid Problems N Kidney or Bladder Problems N GI Problems N Eating Disorder N Anemia N Art (IVF or FET) N Psychiatric Illness N Ovarian Cancer N Diabetes N Pulmonary (TB, Asthma) N Hepatitis/Liver Disease N No Past Medical History N Eczema N Urinary Tract Infection N Abuse/Domestic Violence N Asthma N Trauma/Violence N Depression/ depression N Heart Disease Y Pre-Eclampsia N Hypertension Y Osteoporosis N Thrombophilias N Gynecological History Statement/Question Response Abnormal Pap N Date of Last Mammogram 09/04/2019 Date of LMP 07/19/2004 N STIs/STDs N HPV Vaccine N 09/04/2019 Current Control Method Menopause Age at First Child 26 If Post Menopausal, Age at Menopause 46 Date of Last Colonoscopy 07/19/2014 Sexually Active? Y Date of DEXA bone scan 12/16/2022 Date of Last Pap Smear 01/07/2021 Sexual Problems? Y Desired Control Method Sterilizati on LMP Definite 07/19/2014 N Obstetrics History GPAL:G 2 P 2 0 0 2 Type Value Full Term 2 Living 2 Total 2 Past Encounters Encounter ID Performer Location Encounter Start Date Encounter Closed Date Diagnosis/Indication Diagnosis SNOMED-CT Code Diagnosis ICD10 Code Diagnosis Note [id number] Karina Davilajobkayli [place] [address] [address] 01/07/2021 09:35:39 01/08/2021 17:03:30 Gynecologic examination 91786889 Z01.419 Take Calcium with Vitamin D 12-1500mg daily. Do monthly self breast exams. It is advised to get annual flu shot in the fall and she could obtain at [facility] or [facility] care clinic. If you haven't received the Tdap vaccine in the last 10 years you should obtain one as well. Have mammogram yearly, bone density every 2-3 years and colonoscop y every 5-10 years depending on findings and history. Spoke with patient about mammogram recommenda tion and she did decide to take order for mammogram and bone density. Engage in daily exercise of low impact aerobic exercise 45-60 minutes 4-5 times weekly. Avoid tobacco and illicit drugs as well as using moderation with alcohol intake less than 1-2 8 oz beverages daily. This lifestyle behavior pattern will lead to less health conditions and longer life span. If BMI greater than 25 weight watchers or dietary consult advised. Pt still declines referral for l/s. Feels the symptoms are tolerable. Questions have been answered. Patient appears to understand instructio ns, but if you have any further questions call or respond to this email. [id number] [facility] [address] [address] 02/20/2022 09:15:32 02/20/2022 10:31:42 Genital lichen sclerosus [id number] L90.0 N94.10 Today we discussed changing her current LS routine.Re commended the followin. Daily [place] oil in this area 2x/day (and during sexual activity)2 . Estrace cream topically to the specified area 2-3x/wk. Will call if unaffordab le and we will see if compoundin g this if we need too.3. Lidocaine during sex or prn if needed4. Vaseline jelly for barrier as last step. Call if any issues.PCP recommenda tions given. Time spent in visit is a total of 15 mins with at least 50% of visit consisting of counseling and review of plan of care. [id number] Michelle Sandra CNM [place] [address] [address] 05/14/2023 10:22:38 05/14/2023 11:54:46 Gynecologic examination [id number] Z01.419 Atrophic vaginitis [id number] N95.2 Health Concerns Section Related Observation LastModified by Organization Detai ls LastModified Time None Recorded Concern Status LastModified by Organization Details LastModified Time None Recorded Advance Directives Directive None Recorded Payers Encounter Date Sequence Insurance Name Policy Number Policy Price Covered Member ID Price Member ID Guarantor Name 01/07/2021 1 [place] [id number] Madiha Carney [id number] Madiha Carney 02/20/2022 1 [place] [id number] Madiha Carney [id number] Madiha Carney 05/14/2023 1 [place] Madiha Carney [id number] Madiha Carney 05/14/2023 2 [facility] (MEDICARE SUPPLEMENT) Madiha Carney [id number] Madiha Carney Notes Date Note Type Note Provider Name and Address Organization Details Recorded Time 01/07/2021 text/html Annual GYNReport ed bypatient.Urinary symptoms:No hematuria; No incontinence Vulva:No genital lesion Vagina:Normal vaginal discharge Breast:No breast pain; No breast lump; No nipple discharge Sexual complaints:No sexual complaints; No pain during intercourse; Normal libido Menopausal Symptoms:No menopausal symptoms; Normal vaginal lubrication Psychological symptoms:No depression; No anxiety; No PMDD History of Lichen Sclerosis. Pt has not used clobetasol in over a year. Only occasionally uncomfortable. Refused weight check. Refused vulvar specialist. Karina muñiz, [facility] 01/14/2021 18:17:40 02/20/2022 text/html Here today for medication check of LS. Mariia Topete, [facility]- [address], [place], [address], [facility] 02/20/2022 10:21:16 05/14/2023 text/html Annual GYNReport ed bypatient.History: declined pap, mammogram last month Menstrual cycle:Normal menses Urinary symptoms:No hematuria; No incontinence Vulva:No genital lesion Vagina:Normal vaginal discharge Breast:No breast pain; No breast lump; No nipple discharge Sexual complaints:No sexual complaints; No pain during intercourse; Normal libido Menopausal Symptoms:No menopausal symptoms; Normal vaginal lubrication Psychological symptoms:No depression; No anxiety; No PMDD Preventive measures:Encourage self breast examination; Encourage regular exercise; Encourage no tobacco use; Mammogram performed within the past year; Up to date on colonoscopy screeningNotes:dex a up to date, pap up to date would like refill of lidocaine gel Michelle Sandra CNM [address], [place], [address], [facility] 05/14/2023 11:51:22 OBGyn Episode Ob Episode Information Episode Created Date Number of Fetuses Patient Bloodtype Patient rh Status Prepregnancy Weight lbs Domestic Partner Domestic Partner Phone Father Name Cleat Maker Status 01/07/20 21 1 CLOSED Fetus Data First Name Last Name Admitted to NICU Weight (g) Sex Living Outcome Pediatric Complications Fetus ID Race Codes Race Delivery Type Vaginal Delivery Vicente Calculation Initial Vicente Date Initial Exam Date Initial Exam Provider Initial Ultrasound Date Last Menstrual Period Date Ultra Sound Weeks Gestation 0 Eighteen To Twenty Week Vicente Update Ultra Sound Date Fundal Height At Umbil Quickening Date Ultra Sound Latest Weeks Gestation Final Vicente Confirmed By Final Vicente Confirmed Date Final Vicente Date Ultra Sound Latest Days Gestation 0 0 Menstrual History Last Menstrual Date Menses Monthly On Bcp Conception Prior Menses Frequency Hcg Plus Date Menarche Onset Age Delivery Information Delivery Date Delivery Type Labor Anesthesia Weeks Gestation Incision Type Labor Labor Length Hrs Delivered By Post Complications Tubal Sterilization Discharge Date Comments 4 Discharge Information Feeding Method Contraceptive Method Maternal HG B and HCT Levels Ob Episode Information Episode Created Date Number of Fetuses Patient Bloodtype Patient rh Status Prepregnancy Weight lbs Domestic Partner Domestic Partner Phone Father Name Cleat Maker Status 01/07/20 21 1 CLOSED Fetus Data First Name Last Name Admitted to NICU Weight (g) Sex Living Outcome Pediatric Complications Fetus ID Race Codes Race Delivery Type [id number] Vaginal Delivery Vicente Calculation Initial Vicente Date Initial Exam Date Initial Exam Provider Initial Ultrasound Date Last Menstrual Period Date Ultra Sound Weeks Gestation 0 Eighteen To Twenty Week Vicente Update Ultra Sound Date Fundal Height At Umbil Quickening Date Ultra Sound Latest Weeks Gestation Final Vicente Confirmed By Final Vicente Confirmed Date Final Vicente Date Ultra Sound Latest Days Gestation 0 0 Menstrual History Last Menstrual Date Menses Monthly On Bcp Conception Prior Menses Frequency Hcg Plus Date Menarche Onset Age Delivery Information Delivery Date Delivery Type Labor Anesthesia Weeks Gestation Incision Type Labor Labor Length Hrs Delivered By Post Complications Tubal Sterilization Discharge Date Comments 2 Discharge Information Feeding Method Contraceptive Method Maternal HG B and HCT Levels
--- OUTSIDE RECORDS SUMMARY | 2024-10-04 08:52 | XMS_ITS | Referral Summary ---
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..] 06/16/2023 Assessment & Plan (06/16/2023 7:58 PM NURSE MANAGER): Pt endorsing floaters both eyes (OU) for 6-8 months, 1 episode flashes 2 months ago left eye (OS) + Hx HTN, AFib, hx [place] 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 Kiran today. We will ultrasound those to see if there is any evidence of reflux since she has had extensive vein stripping with 2 in the right and 1 on the left. 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 05/27/2020 Assessment & Plan (09/20/2023 10:31 PM NURSE MANAGER): Intraocular pressure (IOP) borderline For ease, will add meds both eyes (OU Assessment & Plan (06/16/2023 7:57 PM NURSE MANAGER): Tmax 16 +Fam Hx NTG mother NTG right eye (OD) HVF and RNFL full today Assessment & Plan (05/27/2020 11:51 AM NURSE MANAGER): FH of low tension glaucoma (LTG) (mother) [...] 20 Assessment & Plan (09/20/2023 10:31 PM NURSE MANAGER): Not VS- observe Assessment & Plan (06/16/2023 11:50 AM NURSE MANAGER): Not VS- observe Assessment & Plan (05/27/2020 11:51 AM NURSE MANAGER): Not VS- observe Paroxysmal atrial fibrillation 01/17/2020 Assessment & Plan (09/17/2023 10:16 AM NURSE MANAGER): Her atrial fibrillation seems to be doing [...] Eliquis. Assessment & Plan (09/25/2022 11:23 AM NURSE MANAGER): As noted above this, because of financial [...] months. Assessment & Plan (08/16/2020 10:19 AM NURSE MANAGER): She has had some fleeting palpitations that [...] Dr. Sarah Brown for further care at [facility] in [place]. I am certainly glad to see her if her insurance does change again. Nonischemic cardiomyopathy 02/11/2018 Assessment & Plan (09/17/2023 10:16 AM NURSE MANAGER): We went over stress test today and [...] cardiac. Assessment & Plan (09/25/2022 11:23 AM NURSE MANAGER): With her ischemic cardiomyopathy, I asked her to get an echocardiogram. She is refused it previously because of cost but was agreeable to do that today. Assessment & Plan (08/16/2020 10:18 AM NURSE MANAGER): I asked to continue her lisinopril, metoprolol [...] 02/11/2018 Assessment & Plan (09/17/2023 10:04 AM NURSE MANAGER): She had a lipid panel March 05, [...] that. Assessment & Plan (08/16/2020 10:19 AM NURSE MANAGER): We are calling your office to get [...] hypertension Assessment & Plan (09/17/2023 10:16 AM NURSE MANAGER): Her blood pressure looks great today. I [...] changes. Assessment & Plan (09/25/2022 11:21 AM NURSE MANAGER): Her blood pressure is normotensive today so [...] cheaper for and was reassured with that. Social History Tobacco Use Types Packs/Day Years [...] on file Legal Sex Female 2:44 AM NURSE MANAGER Gender Identity Not on file Sexual Orientation Not on file Last Filed Vital Signs Vital Sign Reading Time Taken Comments Blood Pressure 137/73 12/08/2023 9:05 AM CDT Pulse 51 12/08/2023 9:05 AM CDT Temperature - - Respiratory Rate - - Oxygen Saturation 98% 09/17/2023 9:53 AM NURSE MANAGER Inhaled Oxygen Concentration - - Weight 91.2 kg (201 lb) 08/16/2020 9:49 AM NURSE MANAGER Height 172.7 cm (5' 8 ) 09/17/2023 9:53 AM NURSE MANAGER Body Mass Index 30.56 08/16/2020 9:49 AM NURSE MANAGER Plan of Treatment Not on file Insurance [employer]ARE [employer] [place] [employer]ARE [employer] Care Teams Safety Analyst Relationship Specialty Start Date End Date Keegan Smart DO [address] [place] [address] PCP - General Family Medicine 03/08/23
[2024-10-04 13:20] LABS: Alanine Aminotransferase 51 U/L (6-35); Albumin Level 4.2 g/dL (3.5-5.1); Alkaline Phosphatase 64 U/L (38-126); Anion Gap 9 mmol/L (4-12); Aspartate Amino Transferase 65 U/L (14-36); Bilirubin,Total 0.5 mg/dL (0.2-1.3); Blood Urea Nitrogen 15 mg/dL (7-17); Carbon Dioxide 26 mmol/L (22-30); Chloride 106 mmol/L (98-107); Cholesterol 131 mg/dL (0-200); Estimated Glomerular Filt Rate 59; Glucose 77 mg/dL (65-110); HDL Direct 48 mg/dL; Potassium 3.6 mmol/L (3.4-5.0); Sodium 141 mmol/L (137-145); Triglycerides 96 mg/dL (<150)
[2024-10-04 13:31] LABS: LDL Cholesterol Direct 54 mg/dL
== END 2024-10-04 08:28 | disposition home or self-care (01) ==
LOC: ANHGOSHLAB 08:29
PROVIDERS: PCP Clinical Nurse Specialist; Visit Provider Clinical Nurse Specialist
DX: E78.2 Mixed hyperlipidemia (principal); I10 Essential (primary) hypertension
CPT/HCPCS: 36415; 80053; 80061

== ENCOUNTER 2024-10-17 12:05 | Outpatient (CLI) | payer MEDICARE, OTHER, SELFPAY ==
--- NOTE | ~2024-10-17 | MM_ITS ---
EXAMINATION: MM screening josue BI w connie HISTORY: Screening TECHNIQUE: Craniocaudal and mediolateral oblique 3-D tomosynthesis images were obtained and synthetic 2-D images were generated. CAD analysis was submitted and interpreted. COMPARISON: Comparison to multiple prior studies sequentially, with oldest reviewed study dated 08/13. BREAST PARENCHYMAL COMPOSITION: There are scattered areas of fibroglandular density. FINDINGS: There is no evidence of suspicious mass, calcification, or architectural distortion to sugg est malignancy in either breast. There has been no suspicious interval change. IMPRESSION: 1. No mammographic evidence of malignancy. 2. Recommend routine screening mammography in one year. BI-RADS Category 1: Negative Reviewed, dictated and finalized at location A.
== END 2024-10-17 12:06 | disposition home or self-care (01) ==
PROVIDERS: PCP Clinical Nurse Specialist; Visit Provider Obstetrics & Gynecology
DX: Z12.31 Encounter for screening mammogram for malignant neoplasm of breast (principal)
CPT/HCPCS: 77063; 77067

== ENCOUNTER 2025-01-18 09:53 | Outpatient (CLI) | payer MEDICARE, OTHER, SELFPAY ==
--- NOTE | ~2025-01-18 | XR_ITS ---
[id number] Ordering provider: BURTON Reyes History: . M79.672 - Pain in left foot, INJURY TUJANUARY 09 . Comparison: None. FINDINGS: BONES: No acute fracture or dislocation. JOINT SPACES: Normal. No tarsal coalition. SOFT TISSUES: Normal. Calcaneal spur. Ossification of the insertion of the tendo Achilles. IMPRESSION: No acute osseous abnormality left foot. Reviewed, dictated and finalized at location A.
--- OUTSIDE RECORDS SUMMARY | 2025-01-18 10:03 | XMS_ITS | Referral Summary ---
Author Organization [facility] Address [address] [place] [id number] Care Team Providers Care City Distribution Clerk Name Role Phone Candace Winston NP Primary Care Provider [phone] Encounters Date Type Department Care Team Description 01/12/[address] [place] [phone] Aubree Turcios DO cardiac clearance 01/05/2025 Results Follow-Up [address] [place] [phone] Aubree Turcios DO Transthoracic Echo (TTE) Complete W Doppler/CF 01/04/2025 1:03 PM CDT - 01/04/2025 11:59 PM CDT Hospital Encounter [facility] Cardiology [address] [id number] Paroxysmal atrial fibrillation (HCC) Discharge Disposition: Discharge to home or self care 01/04/2025 1:02 PM CDT - 01/04/2025 11:59 PM CDT Hospital Encounter [facility] Cardiology [address] [id number] Paroxysmal atrial fibrillation (HCC); Essential hypertension Discharge Disposition: Discharge to home or self care 11/13/2024 9:30 AM CDT Office Visit [address] [place] [address] Aubree Turcios DO Paroxysmal atrial fibrillation (HCC) (Primary Dx); Mixed hyperlipidemia; Essential hypertension; Nonischemic cardiomyopathy (HCC) 10/31/[address] [facility] Ophthalmology [address] [facility] [facility] [address], [address] [place] [address] Sanam Frederick MD from Last 3 Months Allergies No known active allergies Medications multivitamin tablet tablet take 1 tablet by oral route every day with food 0 3 Active celecoxib (CeleBREX) 200 mg capsule TAKE 1 CAPSULE BY MOUTH ONCE DAILY NEEDED FOR PAIN 3 Active calcium carbonate/multi vitamin (MULTIVITAMIN-C ALCIUM CARB ORAL) multivitamin Active TURMERIC ORAL Take by mouth Ac tive csbphtfq-wwwr-l ug3-E-furv-bosw 750 mg-644 mg- 30 mg-1 mg tablet Take by mouth Active cholecalciferol , vitamin D3, (VITAMIN D3 ORAL) Take by mouth Active spironolactone (ALDACTONE) 25 mg tablet Take 1 tablet (25 mg total) by mouth daily 90 tablet 3 5 Active lisinopriL (PRINIVIL,ZESTR IL) 20 mg tablet Take 1 tablet (20 mg total) by mouth daily 90 tablet 3 5 Active apixaban (Eliquis) 5 mg tablet Take 1 tablet (5 mg total) by mouth 2 (two) times a day 180 tablet 3 5 Active latanoprost (XALATAN) 0.005 % ophthalmic solution Administer 1 drop into both eyes nightly 2.5 mL 3 5 Active metoprolol XL (TOPROL-XL) 100 mg 24 hr tablet TAKE 1 TABLET BY MOUTH DAILY 90 tablet 3 5 Active pravastatin (PRAVACHOL) 20 mg tablet 5 Active Active Problems Problem Noted Date Diagnosed Date Varicose veins of both lower extremities with pa in 12/11/2023 PVD (posterior vitreous detachment), right eye 1 08/16/2022 Assessment & Plan (06/16/2023 11:48 AM ROOM SERVICE MANAGER): 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; posterior hyaloid attached Endorses floaters for 6-8 months OU, stable No flashes 1 episode of flashes left eye (OS) 2 months ago CTM, return precautions discussed 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 Assessment & Plan (09/20/2023 10:27 PM ROOM SERVICE MANAGER): + Fam Hx glaucoma mother with NTG Tmax 14/16 Prev followed with local measurement and verification engineer and here x many years as glaucoma [...] steps Assessment & Plan (06/16/2023 7:55 PM ROOM SERVICE MANAGER): + Fam Hx glaucoma mother with NTG Tmax 14/16 Prev followed with local measurement and verification engineer and here x many years as glaucoma [...] 06/16/2023 Assessment & Plan (06/16/2023 7:58 PM ROOM SERVICE MANAGER): Pt endorsing floaters both eyes (OU) for 6-8 months, 1 episode flashes 2 months ago left eye (OS) + Hx HTN, AFib, hx [place] 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 Kiran today. We will ultrasound those to see if there is any evidence of reflux since she has had extensive vein stripping with 2 in the right and 1 on the left. 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 05/27/2020 Assessment & Plan (09/20/2023 10:31 PM ROOM SERVICE MANAGER): Intraocular pressure (IOP) borderline For ease, will add meds both eyes (OU Assessment & Plan (06/16/2023 7:57 PM ROOM SERVICE MANAGER): Tmax 16 +Fam Hx NTG mother NTG right eye (OD) HVF and RNFL full today Assessment & Plan (05/27/2020 11:51 AM ROOM SERVICE MANAGER): FH of low tension glaucoma (LTG) [...] 20 Assessment & Plan (09/20/2023 10:31 PM ROOM SERVICE MANAGER): Not VS- observe Assessment & Plan (06/16/2023 11:50 AM ROOM SERVICE MANAGER): Not VS- observe Assessment & Plan (05/27/2020 11:51 AM ROOM SERVICE MANAGER): Not VS- observe Paroxysmal atrial fibrillation 01/17/2020 Assessment & Plan (11/13/2024 9:03 AM CDT): She is always hard to tell historically if she is having atrial fibrillation. I am going to put a monitor on her for week to see if she is having Atrial fibrillation with a burden is. If she is having more Atrial fibrillation we probably need to think about changing her medications as she has had a cardiomyopathy prior to this. She continues on Eliquis for thromboembolism prophylaxis and metoprolol for rate and rhythm control. I will see her in 1 year. Assessment & Plan (09/17/2023 10:16 AM ROOM SERVICE MANAGER): Her atrial fibrillation seems to be [...] Eliquis. Assessment & Plan (09/25/2022 11:23 AM ROOM SERVICE MANAGER): As noted above this, because of [...] months. Assessment & Plan (08/16/2020 10:19 AM ROOM SERVICE MANAGER): She has had some fleeting palpitations [...] Dr. Sarah Brown for further care at [facility] in [place]. I am certainly glad to see her if her insurance does change again. Nonischemic cardiomyopathy 02/11/2018 Assessment & Plan (11/13/2024 9:04 AM CDT): I also asked her to repeat an echocardiogram as it has been more than 2 years and with her history of cardiomyopathy and perhaps more Atrial fibrillation. Assessment & Plan (09/17/2023 10:16 AM ROOM SERVICE MANAGER): We went over stress test today [...] cardiac. Assessment & Plan (09/25/2022 11:23 AM ROOM SERVICE MANAGER): With her ischemic cardiomyopathy, I asked her to get an echocardiogram. She is refused it previously because of cost but was agreeable to do that today. Assessment & Plan (08/16/2020 10:18 AM ROOM SERVICE MANAGER): I asked to continue her lisinopril, [...] time. Mixed hyperlipidemia 02/11/2018 Assessment & Plan (11/13/2024 9:04 AM CDT): She tells me that her primary got a lipid panel so we are going to call and get that. Assessment & Plan (09/17/2023 10:04 AM ROOM SERVICE MANAGER): She had a lipid panel March [...] that. Assessment & Plan (08/16/2020 10:19 AM ROOM SERVICE MANAGER): We are calling your office to [...] hypertension Assessment & Plan (09/17/2023 10:16 AM ROOM SERVICE MANAGER): Her blood pressure looks great today. [...] changes. Assessment & Plan (09/25/2022 11:21 AM ROOM SERVICE MANAGER): Her blood pressure is normotensive today [...] on file Legal Sex Female 2:44 AM ROOM SERVICE MANAGER Gender Identity Not on file Sexual Orientation Not on file Last Filed Vital Signs Vital Sign Reading Time Taken Comments Blood Pressure 122/74 11/13/2024 8:44 AM CDT Pulse 59 11/13/2024 8:44 AM CDT Temperature - - Respiratory Rate - - Oxygen Saturation 99% 11/13/2024 8:44 AM CDT Inhaled Oxygen Concentration - - Weight 91.2 kg (201 lb) 08/16/2020 9:49 AM ROOM SERVICE MANAGER Height 172.7 cm (5' 8) 11/13/2024 8:44 AM CDT Body Mass Index 30.56 08/16/2020 9:49 AM ROOM SERVICE MANAGER Plan of Treatment Not on file Procedures Procedure Name Priority Date/Time Associated Diagnosis Comments TRANSTHORACIC ECHO (TTE) COMPLETE W DOPPLER/CF W CONTRAST Routine 01/04/2025 2:06 PM CDT Paroxysmal atrial fibrillation (HCC) Essential hypertension LIPID PANEL Routine 11/13/2024 9:34 AM CDT from Last 3 Months Results * TRANSTHORACIC ECHO (TTE) COMPLETE W DOPPLER/CF W CONTRAST (01/04/2025 2:06 PM CDT) Estimated EF 55 % CONS SCIMAGE Anatomical Region Laterality Modality Ultrasound 01/04/2025 1:14 PM CDT Narrative 01/04/2025 2:31 PM CDT [address] [place], [place] [address] ECHOCARDIOGRAM Patient Name: MADIHA CARNEY K : 1955 Study Date: 01/04/2025 1:14:02 PM Gender: F Tech: FRANDY Ref Provider: AUBREE TURCIOS Height(Cm): 173 BSA: 2.09 Weight(Kg): 91.2 Heart Rate: 60 Order Provider: AUBREE TURCIOS PROCEDURES: Echocardiographic Report: Transthoracic Echocardiogram with 2D, M-Mode, Doppler examination and echo contrast agent. INDICATIONS: I48.0 Paroxysmal atrial fibrillation I10 Essential (primary) hypertension MEASUREMENTS: 2D/MM Value Range Doppler Value Range LVIDd 2D 4.3 cm [ 3.8 - 5.2 ] AV Peak Jose 1.6 m/s [ 1.0 - 1.7 ] LVIDs 2D 3.4 cm [ 2.2 - 3.5 ] AV Mean PG 5 mmHg IVSd 2D 1.0 cm [ 0.6 - 0.9 ] AV Peak PG 10 mmHg LVPWd 2D 0.9 cm [ 0.6 - 0.9 ] LVOT Mean PG 3 mmHg LVOT Diam 2.0 cm LVOT VTI 24.4 cm LV Mass 135.3 g LVOT Peak Jose 1.2 m/s [ 0.7 - 1.1 ] LV Mass Index 64.7 g/m2 MV E Peak Jose 0.7 m/s [ 0.6 - 1.3 ] Estimated EF 55 % MV A Peak Jose 1.1 m/s [ 1.0 - 1.2 ] LA Volume Index 34.8 ml/m2 [ 16.0 - 34.0 ] MV [place] 3.3 RA Volume 42.7 ml Lat E` Jose 0.10 m/s [ 0.10 - 0.15 ] TAPSE 3.0 cm [ 1.7 - 5.0 ] Sept E' Jose 0.07 m/s [ 0.08 - 0.15 ] E/E` 10.00 MVA PHT 3.4 cm2 PV Peak PG 6 mmHg RV S' 0.1 cm/s 2D/MM Value Range Doppler Value Range - FINDINGS: Study Quality: Technically difficult study. Echocardiography contrast agent used for LV opacification and endocardial border enhancement. BP: Patient's blood pressure is 122/74. Left Ventricle: Normal left ventricular cavity size. Normal global and regional left ventricular systolic function. Normal left ventricular wall thickness. Paradoxical septal motion consistent with IVCD or bundle branch block. Ejection Fraction: Ejection Fraction is estimated to be 55 %. Diastolic Function: Tissue Doppler/Mitral Doppler indices are consistent with impaired relaxation (Grade I diastolic dysfunction). Right Ventricle: Normal right ventricular size. Normal right ventricular systolic function. Left Atrium: There is moderate enlargement of the left atrium. Right Atrium: There is moderate enlargement of the right atrium. Mitral Valve: Mitral valve structurally normal and appears to open and close adequately. Trace mitral valve regurgitation. Aortic Valve: Aortic cusps appear to open and close adequately. Tricuspid Valve: Tricuspid valve not well visualized. TR envelope inadequate to estimate RVSP. Pulmonic Valve: The pulmonic valve is not well visualized, doppler indices are with in normal limits. Pericardium: No pericardial effusion. Aortic Root and Aorta: There is mild aortic root ectasia. Aortic Arch: Normal caliber aortic arch. IVC: The IVC is not well visualized. IAS: Interatrial Septum is normal. CONCLUSIONS: 1. Normal left ventricular cavity size. Normal global and regional left ventricular systolic function. Normal left ventricular wall thickness. Paradoxical septal motion consistent with IVCD or bundle branch block. 2. Ejection Fraction is estimated to be 55 %. 3. Tissue Doppler/Mitral Doppler indices are consistent with impaired relaxation (Grade I diastolic dysfunction). 4. Normal right ventricular size. Normal right ventricular systolic function. 5. There is moderate enlargement of the left atrium. 6. There is moderate enlargement of the right atrium. 7. Mitral valve structurally normal and appears to open and close adequately. Trace mitral valve regurgitation. 8. Aortic cusps appear to open and close adequately. 9. Tricuspid valve not well visualized. TR envelope inadequate to estimate RVSP. 10. No pericardial effusion. 11. There is mild aortic root ectasia. Electronically Signed By: Shashi Kiran MD, [facility] 01/04/2025 2:30:57 PM CDT Procedure Note Shashi Kiran MD - 01/04/[address] [place] [address] ECHOCARDIOGRAM Patient Name: MADIHA CARNEY K : 1955 Study Date: 01/04/2025 1:14:02 PM Gender: F Tech: FRANDY Ref Provider: AUBREE TURCIOS Height(Cm): 173 BSA: 2.09 Weight(Kg): 91.2 Heart Rate: 60 Order Provider: AUBREE TURCIOS PROCEDURES: Echocardiographic Report: Transthoracic Echocardiogram with 2D, M-Mode, Doppler examination and echocontrast agent. INDICATIONS: I48.0 Paroxysmal atrial fibrillation I10 Essential (primary)hypertension MEASUREMENTS: 2D/MM Value Range DopplerValue Range LVIDd 2D 4.3 cm [ 3.8 - 5.2 ] AV Peak Jose 1.6m/s [ 1.0 - 1.7 ] LVIDs 2D 3.4 cm [ 2.2 - 3.5 ] AV Mean PG 5mmHg IVSd 2D 1.0 cm [ 0.6 - 0.9 ] AV Peak PG 10mmHg LVPWd 2D 0.9 cm [ 0.6 - 0.9 ] LVOT Mean PG 3mmHg LVOT Diam 2.0 cm LVOT VTI 24.4cm LV Mass 135.3 g LVOT Peak Jose 1.2m/s [ 0.7 - 1.1 ] LV Mass Index 64.7 g/m2 MV E Peak Jose 0.7m/s [ 0.6 - 1.3 ] Estimated EF 55 % MV A Peak Jose 1.1m/s [ 1.0 - 1.2 ] LA Volume Index 34.8 ml/m2 [ 16.0 - 34.0 ] MV Decel [place]3.3 RA Volume 42.7 ml Lat E` Jose 0.10m/s [ 0.10 - 0.15 ] TAPSE 3.0 cm [ 1.7 - 5.0 ] Sept E' Jose 0.07m/s [ 0.08 - 0.15 ] E/E` 10.00 MVA PHT 3.4 cm2 PV Peak PG 6 mmHg RV S' 0.1 cm/s 2D/MM Value Range DopplerValue Range - FINDINGS: Study Quality: Technically difficult study. Echocardiography contrast agent used for LVopacification and endocardial border enhancement. BP: Patient's blood pressure is 122/74. Left Ventricle: Normal left ventricular cavity size. Normal global and regional leftventricular systolic function. Normal left ventricular wall thickness. Paradoxical septalmotion consistent with IVCD or bundle branch block. Ejection Fraction: Ejection Fraction is estimated to be 55 %. Diastolic Function: Tissue Doppler/Mitral Doppler indices are consistent with impairedrelaxation (Grade I diastolic dysfunction). Right Ventricle: Normal right ventricular size. Normal right ventricular systolicfunction. Left Atrium: There is moderate enlargement of the left atrium. Right Atrium: There is moderate enlargement of the right atrium. Mitral Valve: Mitral valve structurally normal and appears to open and close adequately.Trace mitral valve regurgitation. Aortic Valve: Aortic cusps appear to open and close adequately. Tricuspid Valve: Tricuspid valve not well visualized. TR envelope inadequate to estimateRVSP. Pulmonic Valve: The pulmonic valve is not well visualized, doppler indices are with innormal limits. Pericardium: No pericardial effusion. Aortic Root and Aorta: There is mild aortic root ectasia. Aortic Arch: Normal caliber aortic arch. IVC: The IVC is not well visualized. IAS: Interatrial Septum is normal. CONCLUSIONS: 1. Normal left ventricular cavity size. Normal global and regional leftventricular systolic function. Normal left ventricular wall thickness. Paradoxicalseptal motion consistent with IVCD or bundle branch block. 2. Ejection Fraction is estimated to be 55 %. 3. Tissue Doppler/Mitral Doppler indices are consistent with impairedrelaxation (Grade I diastolic dysfunction). 4. Normal right ventricular size. Normal right ventricular systolicfunction. 5. There is moderate enlargement of the left atrium. 6. There is moderate enlargement of the right atrium. 7. Mitral valve structurally normal and appears to open and closeadequately. Trace mitral valve regurgitation. 8. Aortic cusps appear to open and close adequately. 9. Tricuspid valve not well visualized. TR envelope inadequate to estimateRVSP. 10. No pericardial effusion. 11. There is mild aortic root ectasia. Electronically Signed By: Shashi Kiran MD, [facility] 01/04/2025 2:30:57 PM CDT Aubree Turcios DO CV ECHO PROCEDURES Final Result * Lipid panel (11/13/2024 9:34 AM CDT) SCRIBED Cholesterol, Total 131 . - . EXTERNAL LAB SCRIBED HDL 48 . - . EXTERNAL LAB SCRIBED LDL 54 . - . EXTERNAL LAB SCRIBED Triglycerides 96 . - . EXTERNAL LAB Blood 11/13/2024 9:34 AM CDT Historical Provider LAB BLOOD ORDERABLES Loly narvaez Result EXTERNAL LAB from Last [address] [place] [address] [place] [address] [place] [employer] [place] MEDICARE MEDICARE [facility] Care Teams City Distribution Clerk Relationship Specialty Start Date End Date Candace Winston NP [facility] [place] [address] PCP - General Cardiovascular Disease 11/13/24
--- OUTSIDE RECORDS SUMMARY | 2025-01-18 10:03 | XMS_ITS | Encounter Summary ---
Author Organization [facility] Address [address] [place] [address] Care Team Providers Care Aircraft Metalsmith Name Role Phone Unavailable Primary Care Provider Unavailabl e Encounter Details Date Type Department Care Team (Late st Contact Info) Description 01/16/2025 External Device Data [facility] ABSTRACTION Provider, Abstract NO ADDRESS ON FILE Social History Tobacco Use Types Packs/Day Years Used Date Smoking Tobacco: Never Smokeless Tobacco: Never Alcohol Use Standard Drinks/Week Comments Yes 1 (1 standard drink = 0.6 oz pur e alcohol) Comments Unknown Sex and Gender Information Value Date Recorded Sex Assigned at Not on file Legal Sex Female 9:05 AM CDT Gender Identity Not on file Sexual Orientation Not on file documented as of this encounter Plan of Treatment Upcoming Encounters Date Type Department Care Team (Latest Contact Info) Description 01/22/2025 1:00 PM CDT Hospital Encounter [facility] [address] [place] [address] 01/24/2025 12:04 PM CDT Hospital Encounter [facility] Operating Room [address] [place] [address] Nav Urbano MD [address] [facility] [address] [place] [address] 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 [place] [address] EAR EXTERNAL PARTIAL EXCISION 02/02/2025 9:40 AM CDT Office Visit [facility] EAR, NOSE AND THROAT [facility] [address] [facility] [address] [place] [address] Lev Garcia PA [address] [facility] 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
--- OUTSIDE RECORDS SUMMARY | 2025-01-18 10:03 | XMS_ITS | Clinical Summary ---
Author Organization [facility] Address [address] [place] [address] Care Team Providers Care Painter Spray Name Role Phone Candace Winston NP Primary Care Provider [phone] Allergies No known active allergies Medications multivitamin tablet tablet take 1 tablet by oral route every day with food 0 3 Active celecoxib (CeleBREX) 200 mg capsule TAKE 1 CAPSULE BY MOUTH ONCE DAILY NEEDED FOR PAIN 3 Active calcium carbonate/multi vitamin (MULTIVITAMIN-C ALCIUM CARB ORAL) multivitamin Active TURMERIC ORAL Take by mouth Ac tive ylghdzww-wyii-n bo4-Z-uvve-bosw 750 mg-644 mg- 30 mg-1 mg tablet [...] 08/16/2022 Assessment & Plan (06/16/2023 11:48 AM CYLINDER PRESS OPERATOR): 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; posterior hyaloid attached Endorses floaters for 6-8 months OU, stable No flashes 1 episode of flashes left eye (OS) 2 months ago CTM, return precautions discussed 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 Assessment & Plan (09/20/2023 10:27 PM CYLINDER PRESS OPERATOR): + Fam Hx glaucoma mother with NTG Tmax 14 Prev 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 with local car 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 associate and here x many years as glaucoma [...] steps Assessment & Plan (06/16/2023 7:55 PM CYLINDER PRESS OPERATOR): + Fam Hx glaucoma mother with NTG Tmax 1416 Prev followed with local car sales associate and here x many years as glaucoma [...] 06/16/2023 Assessment & Plan (06/16/2023 7:58 PM CYLINDER PRESS OPERATOR): Pt endorsing floaters both eyes (OU) for 6-8 months, 1 episode flashes 2 months ago left eye (OS) + Hx HTN, AFib, hx MD 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 Kiran today. We will ultrasound those to see if there is any evidence of reflux since she has had extensive vein stripping with 2 in the right and 1 on the left. 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 05/27/2020 Assessment & Plan (09/20/2023 10:31 PM CYLINDER PRESS OPERATOR): Intraocular pressure (IOP) borderline For ease, will add meds both eyes (OU Assessment & Plan (06/16/2023 7:57 PM CYLINDER PRESS OPERATOR): Tmax 16 +Fam Hx NTG mother NTG right eye (OD) HVF and RNFL full today Assessment & Plan (05/27/2020 11:51 AM CYLINDER PRESS OPERATOR): FH of low tension glaucoma (LTG) (mother) [...] 20 Assessment & Plan (09/20/2023 10:31 PM CYLINDER PRESS OPERATOR): Not VS- observe Assessment & Plan (06/16/2023 11:50 AM CYLINDER PRESS OPERATOR): Not VS- observe Assessment & Plan (05/27/2020 11:51 AM CYLINDER PRESS OPERATOR): Not VS- observe Paroxysmal atrial fibrillation 01/17/2020 [...] year. Assessment & Plan (09/17/2023 10:16 AM CYLINDER PRESS OPERATOR): Her atrial fibrillation seems to be doing [...] Eliquis. Assessment & Plan (09/25/2022 11:23 AM CYLINDER PRESS OPERATOR): As noted above this, because of financial [...] months. Assessment & Plan (08/16/2020 10:19 AM CYLINDER PRESS OPERATOR): She has had some fleeting palpitations that [...] Sarah Brown for further care at [facility] in [place]. I am certainly glad to see her if her insurance does change again. Nonischemic cardiomyopathy 02/11/2018 Assessment & Plan (11/13/2024 9:04 AM CDT): I also asked her to repeat an echocardiogram as it has been more than 2 years and with her history of cardiomyopathy and perhaps more Atrial fibrillation. Assessment & Plan (09/17/2023 10:16 AM CYLINDER PRESS OPERATOR): We went over stress test today and [...] cardiac. Assessment & Plan (09/25/2022 11:23 AM CYLINDER PRESS OPERATOR): With her ischemic cardiomyopathy, I asked her to get an echocardiogram. She is refused it previously because of cost but was agreeable to do that today. Assessment & Plan (08/16/2020 10:18 AM CYLINDER PRESS OPERATOR): I asked to continue her lisinopril, metoprolol [...] that. Assessment & Plan (09/17/2023 10:04 AM CYLINDER PRESS OPERATOR): She had a lipid panel March 05, [...] that. Assessment & Plan (08/16/2020 10:19 AM CYLINDER PRESS OPERATOR): We are calling your office to get [...] hypertension Assessment & Plan (09/17/2023 10:16 AM CYLINDER PRESS OPERATOR): Her blood pressure looks great today. I [...] changes. Assessment & Plan (09/25/2022 11:21 AM CYLINDER PRESS OPERATOR): Her blood pressure is normotensive today so [...] cheaper for and was reassured with that. Encounters Date Type Department Care Team Description 01/12/[address] [place] [phone] Aubree Turcios, DO cardiac clearance 01/05/2025 Results Follow-Up [address] [place] [phone] Aubree Turcios, DO Transthoracic Echo (TTE) Complete W Doppler/CF 01/04/2025 1:03 PM CDT - 01/04/2025 11:59 PM CDT Hospital Encounter [facility] [address] [place] [address] Paroxysmal atrial fibrillation (HCC) Discharge Disposition: Discharge to home or self care 01/04/2025 1:02 PM CDT - 01/04/2025 11:59 PM CDT Hospital Encounter [facility] [address] [place] [address] Paroxysmal atrial fibrillation (HCC); Essential hypertension Discharge Disposition: Discharge to home or self care 11/13/2024 9:30 AM CDT Office Visit [facility] [address] [place] [address] Aubree Turcios DO Paroxysmal atrial fibrillation (HCC) (Primary Dx); Mixed hyperlipidemia; Essential hypertension; Nonischemic cardiomyopathy (HCC) 10/31/2024 Telephone [facility] [address] [facility] [address], [address] [place] [address] Sanam Frederick MD from Last 3 Months Surgical History Surgery Date Site/Laterality Comments BACK [...] on file Legal Sex Female 2:44 AM CYLINDER PRESS OPERATOR Gender Identity Not on file Sexual Orientation Not on file Obstetrics History Last Filed Vital Signs Vital Sign Reading Time Taken Comments Blood Pressure 122/74 11/13/2024 8:44 AM CDT Pulse 59 11/13/2024 8:44 AM CDT Temperature - - Respiratory Rate - - Oxygen Saturation 99% 11/13/2024 8:44 AM CDT Inhaled Oxygen Concentration - - Weight 91.2 kg (201 lb) 08/16/2020 9:49 AM CYLINDER PRESS OPERATOR Height 172.7 cm (5' 8) 11/13/2024 8:44 AM CDT Body Mass Index 30.56 08/16/2020 9:49 AM CYLINDER PRESS OPERATOR Plan of Treatment Health Maintenance Due Date [...] Well Visit 65+ 2022 Influenza Vaccine (#1) 2025 07/01/2018 Procedures Procedure Name Priority Date/Time Associated Diagnosis [...] PM CDT Narrative 01/04/2025 2:31 PM CDT [address] [place] [address] ECHOCARDIOGRAM Patient Name: MADIHA CARNEYSoco : 1955 Study Date: 01/04/2025 1:14:02 PM Gender: F Tech: FRANDY Ref Provider: RICHY TURCIOSNA Height(Cm): 173 BSA: 2.09 Weight(Kg): 91.2 Heart [...] [ 16.0 - 34.0 ] MV Decel Lyman 3.3 RA Volume 42.7 ml Lat E` [...] ectasia. Electronically Signed By: Shashi Kiran MD, [facility] 01/04/2025 2:30:57 PM CDT Procedure Note Shashi Kiran MD - 01/04/[address] [place] [address] [place] [address] ECHOCARDIOGRAM Patient Name: MADIHA CARNEY K : [...] ectasia. Electronically Signed By: Shashi Kiran MD, [facility] 01/04/2025 2:30:57 PM CDT Aubree Turcios DO CV ECHO PROCEDURES Final Result * Lipid panel (11/13/2024 9:34 AM CDT) SCRIBED Cholesterol, Total 131 . - . EXTERNAL LAB SCRIBED HDL 48 . - . EXTERNAL LAB SCRIBED LDL 54 . - . EXTERNAL LAB SCRIBED Triglycerides 96 . - . EXTERNAL LAB Blood 11/13/2024 9:34 AM CDT Historical Provider LAB BLOOD ORDERABLES Loly l Result EXTERNAL LAB from Last 3 Months Insurance MEDICARE [facility] Member Subscriber Plan / Payer (Ef fective 2022-Present) Name:Madiha Carney Relation to Subscriber:Self Name:Madiha Carney Payer ID:[id number] Group ID:Not on file Type:[employer] Address: [facility] [place] [address] [facility] MEDICARE MEDICARE [facility] Care Teams Painter Spray Relationship Specialty Start Date End Date Candace Winston NP [address] [place] [address] [place] [address] PCP - General Cardiovascular Disease 11/13/24
--- OUTSIDE RECORDS SUMMARY | 2025-01-18 10:03 | XMS_ITS | Clinical Summary ---
Author Organization [facility] Address [address] [facility] [place] [address] Phone Care Team Providers Care Manager Business Intelligence Name Role Phone Unavailable Primary Care Provider Unavailabl e Allergies No known active allergies Medications apixaban (Eliquis) 5 mg tablet Take 5 mg by mouth 2 times daily. 5 Active celecoxib (CeleBREX) 200 mg capsule Take 200 mg by mouth daily. 3 Active ezojazwt-koxf-s ny6-W-vuir-bosw 750 mg-644 mg- 30 mg-1 mg Tablet Take by mouth. Activ e latanoprost (XALATAN) 0.005 % solution 1 Drop by Ophthalmic route daily at bedtime. 5 Active lisinopriL (PRINIVIL) 20 mg tablet Take 20 mg by mouth daily. 5 Active metoprolol succinate (TOPROL XL) 100 mg Extended Release 24 hour tablet Take 100 mg by mouth daily. 5 Active pravastatin (PRAVACHOL) 20 mg tablet Take 40 mg by mouth daily. 5 Active spironolactone (ALDACTONE) 25 mg tablet Take 25 mg by mouth daily. 5 Active Active Problems No known active problems Encounters Date Type Department Care Team Description 01/16/2025 External Device Data STL ABSTRACTION Provider, Abstract 01/16/2025 External Device Data STL ABSTRACTION Provider, Abstract 01/16/2025 External Device Data STL ABSTRACTION Provider, Abstract 01/15/2025 10:45 AM CDT - 01/15/2025 11:59 PM CDT Hospital Encounter [facility] Laboratory Services [facility] [address] [place] [address] Nav Urbano MD Discharge Disposition: Home or Self Care 01/11/2025 Chart Note [facility]3] EAR, NOSE AND THROAT [facility] [address] [facility] [address] [place] [address] Marsha Langley RN 01/09/2025 2:00 PM CDT Office Visit [facility]3] EAR, NOSE AND THROAT [facility] [address] [facility] [address] [place] [address] Nav Urbano MD 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) 01/09/2025 Chart Note [facility]3] EAR, NOSE AND THROAT [facility] [address] [facility] [address] [place] [address] Marsha Langley RN from Last 3 Months Family History Medical History Relation Name Comments Heart Disease Father Hypertension Father Stroke Father Relation Name Status Comments Father Social History Tobacco Use Types Packs/Day Years Used Date Smoking Tobacco: Never Smokeless Tobacco: Never Tobacco Cessation:Counseling Given: Not Answered Alcohol Use Standard Drinks/Week Comments Yes 1 (1 standard drink = 0.6 oz pur e alcohol) Comments Unknown Sex and Gender Information Value Date Recorded Sex Assigned at Not on file Legal Sex Female 9:05 AM CDT Gender Identity Not on file Sexual Orientation Not on file Last Filed Vital Signs Vital Sign Reading Time Taken Comments Blood Pressure - - Pulse - - Temperature - - Respiratory Rate 18 01/09/2025 1:54 PM CDT Oxygen Saturation - - Inhaled Oxygen Concentration - - Weight 89.8 kg (198 lb) 01/09/2025 1:54 PM CDT Height 170.2 cm (5' 7) 01/09/2025 1:54 PM CDT Body Mass Index 31.01 01/09/2025 1:54 PM CDT Plan of Treatment Upcoming Encounters Date Type Department Care Team (Latest Contact Info) Description 01/22/2025 1:00 PM CDT Hospital Encounter [facility] [address] [place] [address] 01/24/2025 12:04 PM CDT Hospital Encounter [facility] Operating Room [address] [place] [address] Nav Urbano MD [address] 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) 01/24/2025 12:04 PM CDT Anesthesia Event [facility] Operating Room [address] [place] [phone] Delilah Barry PA [address] [place] [address] 01/24/2025 12:04 PM CDT - 01/24/2025 2:30 PM CDT Surgery [facility] Operating Room [address] [place] [address] Nav Urbano MD [address] [address] EAR EXTERNAL PARTIAL EXCISION 02/02/2025 9:40 AM CDT Office Visit [facility]3] EAR, NOSE AND THROAT [facility] [address] [place] [address] Lev Garcia PA [address] [address] Scheduled Procedures Name Priority Associated Diagnoses Date/Ti me EAR EXTERNAL PARTIAL EXCISION 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) 01/24/2025 12:04 PM CDT FLAP RECONSTRUCTION 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) 01/24/2025 12:04 PM CDT Health Maintenance Due Date Last Done Comments Pre-Diabetes and Diabetes Screening 1955 DTAP/TDAP/TD VACCINES (1 - Tdap) 1976 BREAST CANCER SCREENING 1997 FIT-DNA Q 3 years 2002 FIT/FOBT Q 1 year 2002 Flex Sig/CT Colonography Q 5 years 2002 PNEUMOCOCCAL VACCINE 50+ YEARS (1 of 1 - PCV) 09/22/19 08 ZOSTER VACCINE (1 of 2) 09/22/2007 OSTEOPOROSIS SCREENING 2022 COLORECTAL SCREENING 07/19/2024 07/19/2014 Colorectal Cancer Screening 07/19/2024 INFLUENZA VACCINE (#1) 2025 RSV VACCINE (60+ or ) (1 - 1-dose 75+ series) 2032 Procedures Procedure Name Priority Date/Time Associated Diagnosis Comments PATHOLOGY Pathology 01/15/2025 10:52 AM CDT Encounter for consultation from Last 3 Months Results * PATHOLOGY (01/15/2025 10:52 AM CDT) CASE REPORT Surgical Pathology Report Case: [id number] Authorizing Provider: Nav Urbano MD Collected: 01/15/2025 10:52 AM Ordering Location: [facility] Received: 01/15/2025 10:52 AM Services [facility] Pathologist: Jason Srivastava MD Specimen: Other, specify, 4 slides labeled [id number] 5 5:34 PM CDT [facility] FINAL DIAGNOSIS Consult material received from [place], [place], [id number], dated 12/25/2024: Skin, right superior posterior helix, shave biopsy: - Melanoma (pT1a). - Breslow thickness 0.5 mm; João level IV. - Present at margins. 5 5:34 PM CDT [facility] at 1734 CDT MICROSCOPIC DESCRIPTION Sections of skin show a proliferation of atypical melanocytes in nests and as single cells along the dermoepidermal junction. A dermal melanocyte population is also present. Gladstone-1 highlights the lesional cells; there is florid growth and pagetoid spread. PRAME is positive within the junctional melanocytes and also partially expressed in the dermal melanocytes. 5 5:34 PM CDT [facility] CLINICAL INFORMATION Z71.9 - Encounter for consultation [ICD-10-CM] 5 5:34 PM CDT [facility] SUBMITTED BY Nav Urbano MD, [facility], [address], [facility] [address] [facility] [address] [place] [address] 5 5:34 PM T [facility] MATERIAL RECEIVED Received are 2 H&Es and 2 IHCs. There is a corresponding pathology report from [facility]. The slides are returned after review. 5 5:34 PM T [facility] SYNOPTIC REPORT INVASIVE MELANOMA OF THE SKIN: Biopsy INVASIVE MELANOMA OF THE SKIN: BIOPSY - All Specimens 8th Edition - Protocol posted: 06/30/2023 SPECIMEN Procedure: Biopsy, shave Specimen Laterality: Right TUMOR Tumor Site: External ear: Right superior posterior helix Histologic Type: Low-cumulative sun damage (CSD) melanoma (including superficial spreading melanoma) Maximum Tumor (Breslow) Thickness (Millimeters): 0.5 mm Ulceration: Not identified Anatomic (João) Level: IV (melanoma invades reticular dermis) Mitotic Rate: None identified Microsatellite(s): Not identified Lymphatic and / or Vascular Invasion: Not identified Neurotropism: Not identified Tumor-Infiltrating Lymphocytes: Present, non-brisk Tumor Regression: Not identified MARGINS Margin Status for Invasive Melanoma: Invasive melanoma present at margin Margin(s) Involved by Invasive Melanoma: Deep Margin Status for Melanoma In Situ: Melanoma in situ present at margin Margin(s) Involved by Melanoma In Situ: Peripheral pTMN CLASSIFICATION (AJCC 8th Edition) Reporting of pT category is based on information available to the pathologist at the time the report is issued. As per the AJCC (Chapter 1, 8th Ed.) it is the managing physician s responsibility to establish the final pathologic stage based upon all pertinent information, including but potentially not limited to this pathology report. pT Category: pT1a 5 5:34 PM T [facility] COMMENT Special stain, immunohistochemical, and/or in situ hybridization results are interpreted with controls that demonstrate appropriate staining reactions. Note on use of immunohistochemistry reagents and in situ hybridization probes: These tests were developed and their performance characteristics determined by [facility], Department of Laboratory Medicine. It has not been cleared or approved by the U.S. Food and Drug Administration. The FDA has determined that such clearance or approval is not necessary. The test is used for clinical purposes. It should not be regarded as investigational or for research. This laboratory is certified to perform high complexity testing. Frozen section/operating room consultation, gross examination and dissection, and case sign out may have been performed in part or completely in the following laboratories: [facility], [place] #[id number] [address] [place] [address] [facility], [place] #[id number] [address] [place] [address] [facility] [place], [place] #[id number] [address] [place] [address] 5:34 PM CDT [facility] Tissue (Other, specify) 01/15/2025 10:52 AM CDT 01/15/2025 10:52 AM CDT Nav Urbano MD PATHOLOGY/CYTOLOGY ORDER SHOAIB Final Result [facility]# [id number] [address] [facility] [place] [address] from Last [address] [place] [address] MEDICARE PART A AND [place] [address]
--- OUTSIDE RECORDS SUMMARY | 2025-01-18 10:03 | XMS_ITS | Clinical Summary ---
Author Organization [facility] Address [address] [place] [address] Care Team Providers Care Resistor Testing Machine Operator Name Role Phone Unavailable Primary Care Provider [...] Comments Blood Pressure 162/80 06/30/2012 9:49 AM CIDER PRESS OPERATOR Pulse 70 06/30/2012 9:49 AM CIDER PRESS OPERATOR Temperature - - Respiratory Rate 18 06/30/2012 9:49 AM CIDER PRESS OPERATOR R egular Oxygen Saturation - - Inhaled Oxygen Concentration - - Weight 88 kg (194 lb) 06/30/2012 9:49 AM CIDER PRESS OPERATOR Height 168.9 cm (5' 6.5) 06/30/2012 9:49 AM CIDER PRESS OPERATOR Body Mass Index 30.84 06/30/2012 9:49 AM CIDER PRESS OPERATOR Plan of Treatment Health Maintenance Due Date Last Done Comments Colorectal Cancer Screening Colonoscopy (10 Years) 1955 Hepatitis C 09/22/1975 DTaP, Tdap and Td Vaccines ( 1 - Tdap) 1976 Mammogram Screening 1997 Pneumococcal Vaccine: 50+ Ye ars (1 of 1 - PCV) 09/22/2007 Zoster Vaccines (1 of 2) 09/22/2007 Dexa Scan (General) 2022 COVID-19 Vaccine ( - 2023-2 5 season) 2024 RSV Immunization or 60+ Years (1 [...]
== END 2025-01-18 09:54 | disposition home or self-care (01) ==
PROVIDERS: PCP Internal Medicine; Visit Provider Clinical Nurse Specialist
DX: M79.672 Pain in left foot (principal)
CPT/HCPCS: 73630

== ENCOUNTER 2025-06-11 09:00 | Outpatient (CLI) | payer MEDICARE, OTHER, SELFPAY ==
--- OUTSIDE RECORDS SUMMARY | 2025-06-11 09:43 | XMS_ITS | Clinical Summary ---
Author Organization [facility] Address [address] [place] [address] Phone Care Team Providers Care Music Publicist Name Role Phone Unavailable Primary Care Provider Unavailabl e Allergies No known active allergies Medications apixaban (Eliquis) 5 mg tablet Take 5 mg by mouth 2 times daily. 5 Active celecoxib (CeleBREX) 200 mg capsule Take 200 mg by mouth daily. 3 Active ntakqcpp-bvmy-w kn2-S-mdyp-bosw 750 mg-644 mg- 30 mg-1 mg Tablet [...] 25 mg by mouth daily. 5 Active HYDROcodone-maureen taminophen (NORCO) 5-325 mg tabletIndicatio ns:Post-op pain Take 1 Tablet by mouth every 4 hours as needed for Pain, Moderate. Max Daily Amount: 6 Tablets 12 Tablet 5 Active Active Problems No known active problems Encounters Date Type Department Care Team Description 06/05/2025 External Device Data ST[facility] ABSTRACTION Provider, Abstract 05/09/2025 External Device Data [facility] ABSTRACTION Provider, Abstract 05/08/2025 External Device Data [facility] ABSTRACTION Provider, Abstract 04/03/2025 External Device Data [facility] ABSTRACTION Provider, Abstract from Last 3 Months Family History Medical History Relation Name Comments Heart Disease Father Hypertension Father Stroke Father Relation Name Status Comments Father Social History Tobacco Use Types Packs/Day Years Used Date Smoking Tobacco: Never Smokeless Tobacco: Never Tobacco Cessation:Counseling Given: Not Answered Alcohol Use Standard Drinks/Week Comments Yes 1 (1 standard drink = 0.6 oz pur e alcohol) Food Insecurity Answer Date Recorded Patient needs follow up regardin 01/22/2025 Transportation Needs Answer Date Record ed Patient needs follow up regardin 01/22/2025 Utility Needs Answer Date Recorded Patient needs follow up regardin 01/22/2025 Comments No Sex and Gender Information Value Date Recorded Sex Assigned at Not on file Legal Sex Female 9:05 AM CDT Gender Identity Not on file Sexual Orientation Not on file Last Filed Vital Signs Vital Sign Reading Time Taken Comments Blood Pressure 135/63 01/24/2025 2:29 PM CDT Pulse 57 01/24/2025 2:29 PM CDT Temperature 35.8 C (96.5 F) 01/24/2025 2:29 PM CDT Respiratory Rate 18 01/24/2025 2:29 PM CDT Oxygen Saturation 98% 01/24/2025 2:29 PM CDT Inhaled Oxygen Concentration - - Weight 91.8 kg (202 lb 6.4 oz) 01/24/2025 9:57 A M CDT Height 170.2 cm (5' 7) 01/24/2025 9:57 AM CDT Body Mass Index 31.7 01/24/2025 9:57 AM CDT Plan of Treatment Upcoming Encounters Date Type Department Care Team (Late st Contact Info) Description 06/22/2025 10:00 AM REMOTE PILOT OPERATOR Office Visit [facility] [address] [facility] [address] [place] [address] Nav Urbano MD [address] [facility]. [facility] [address] [place] [address] Health Maintenance Due Date Last Done Comments [...] ) (1 - 1-dose 75+ series) 2032 Insurance MEDICARE PART A AND B [facility] Advance Directives For more information, please contact: [phone] * Full Code (Latest Code Status on File) Date Activated Date Inactivated Comments 01/24/2025 10:04 AM 01/24/2025 4:31 PM
--- OUTSIDE RECORDS SUMMARY | 2025-06-11 09:44 | XMS_ITS | Clinical Summary ---
[facility] Organization 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 Name Role Phone Candace Winston NP Primary Care Provider [phone] Allergies No known active allergies Medications multivitamin tablet tablet take 1 tablet by oral route every day with food 0 3 Active celecoxib (CeleBREX) 200 mg capsule TAKE 1 CAPSULE BY MOUTH ONCE DAILY NEEDED FOR PAIN 3 Active calcium carbonate/multi vitamin (MULTIVITAMIN-C ALCIUM CARB ORAL) multivitamin Active TURMERIC ORAL Take by mouth Ac tive nzygnkig-ojkh-i er7-I-trdw-bosw 750 mg-644 mg- 30 mg-1 mg tablet [...] 08/16/2022 Assessment & Plan (06/16/2023 11:48 AM TEACHING AIDE): 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; posterior hyaloid attached Endorses floaters for 6-8 months OU, stable No flashes 1 episode of flashes left eye (OS) 2 months ago CTM, return precautions discussed 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 Assessment & Plan (09/20/2023 10:27 PM TEACHING AIDE): + Fam Hx glaucoma mother with NTG Tmax 14 Prev 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 Kiran today. We will ultrasound those to see if there is any evidence of reflux since she has had extensive vein stripping with 2 in the right and 1 on the left. 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 05/27/2020 Assessment & Plan (09/20/2023 10:31 PM TEACHING AIDE): Intraocular pressure (IOP) borderline For ease, will add meds both eyes (OU Assessment & Plan (06/16/2023 7:57 PM TEACHING AIDE): Tmax 16 +Fam Hx NTG mother NTG right eye (OD) HVF and RNFL full today Assessment & Plan (05/27/2020 11:51 AM TEACHING AIDE): FH of low tension glaucoma (LTG) (mother) [...] 20 Assessment & Plan (09/20/2023 10:31 PM TEACHING AIDE): Not VS- observe Assessment & Plan (06/16/2023 11:50 AM TEACHING AIDE): Not VS- observe Assessment & Plan (05/27/2020 11:51 AM TEACHING AIDE): Not VS- observe Paroxysmal atrial fibrillation 01/17/2020 [...] year. Assessment & Plan (09/17/2023 10:16 AM TEACHING AIDE): Her atrial fibrillation seems to be doing [...] Eliquis. Assessment & Plan (09/25/2022 11:23 AM TEACHING AIDE): As noted above this, because of financial [...] months. Assessment & Plan (08/16/2020 10:19 AM TEACHING AIDE): She has had some fleeting palpitations that [...] Dr. Sarah Brown for further care at [facility] in [place]. I am certainly glad to see her if her insurance does change again. Nonischemic cardiomyopathy 02/11/2018 Assessment & Plan (11/13/2024 9:04 AM CDT): I also asked her to repeat an echocardiogram as it has been more than 2 years and with her history of cardiomyopathy and perhaps more Atrial fibrillation. Assessment & Plan (09/17/2023 10:16 AM TEACHING AIDE): We went over stress test today and [...] cardiac. Assessment & Plan (09/25/2022 11:23 AM TEACHING AIDE): With her ischemic cardiomyopathy, I asked her to get an echocardiogram. She is refused it previously because of cost but was agreeable to do that today. Assessment & Plan (08/16/2020 10:18 AM TEACHING AIDE): I asked to continue her lisinopril, metoprolol [...] that. Assessment & Plan (09/17/2023 10:04 AM TEACHING AIDE): She had a lipid panel March 05, [...] that. Assessment & Plan (08/16/2020 10:19 AM TEACHING AIDE): We are calling your office to get [...] hypertension Assessment & Plan (09/17/2023 10:16 AM TEACHING AIDE): Her blood pressure looks great today. I [...] changes. Assessment & Plan (09/25/2022 11:21 AM TEACHING AIDE): Her blood pressure is normotensive today so [...] on file Legal Sex Female 2:44 AM TEACHING AIDE Gender Identity Not on file Sexual Orientation Not on file Last Filed Vital Signs Vital Sign Reading Time Taken Comments Blood Pressure 122/74 11/13/2024 8:44 AM CDT Pulse 59 11/13/2024 8:44 AM CDT Temperature - - Respiratory Rate - - Oxygen Saturation 99% 11/13/2024 8:44 AM CDT Inhaled Oxygen Concentration - - Weight 91.2 kg (201 lb) 08/16/2020 9:49 AM TEACHING AIDE Height 172.7 cm (5' 8) 11/13/2024 8:44 AM CDT Body Mass Index 30.56 08/16/2020 9:49 AM TEACHING AIDE Plan of Treatment Health Maintenance Due Date [...] 65+ 2022 Influenza Vaccine (#1) 2025 07/01/[address] [place] [address] MEDICARE [employer] [place] [employer] [place] MEDICARE MEDICARE [employer] [facility] [place] [address] Care Teams Strap Folding Machine Operator Relationship Specialty Start Date End Date Candace Winston NP [address] [address] [place] [address] [place] [id number] PCP - General Cardiovascular Disease 11/13/24
--- OUTSIDE RECORDS SUMMARY | 2025-06-11 09:44 | XMS_ITS | Clinical Summary ---
Author Organization [facility] Address [address] [place] [id number] Care Team Providers Care Survey Statistician Name Role Phone Unavailable Primary Care Provider [...] Comments Blood Pressure 162/80 06/30/2012 9:49 AM LOSS PREVENTION COORDINATOR Pulse 70 06/30/2012 9:49 AM LOSS PREVENTION COORDINATOR Temperature - - Respiratory Rate 18 06/30/2012 9:49 AM LOSS PREVENTION COORDINATOR R egular Oxygen Saturation - - Inhaled Oxygen Concentration - - Weight 88 kg (194 lb) 06/30/2012 9:49 AM LOSS PREVENTION COORDINATOR Height 168.9 cm (5' 6.5) 06/30/2012 9:49 AM LOSS PREVENTION COORDINATOR Body Mass Index 30.84 06/30/2012 9:49 AM LOSS PREVENTION COORDINATOR Plan of Treatment Health Maintenance Due Date Last Done Comments Colorectal Cancer Screening Colonoscopy (10 Years) 1957 Hepatitis C 09/22/1975 DTaP, Tdap and Td Vaccines ( 1 - Tdap) 1976 Mammogram Screening 1997 Pneumococcal Vaccine: 50+ Ye ars (1 of 1 - PCV) 09/22/2007 Zoster Vaccines (1 of 2) 09/22/2007 Dexa Scan (General) 2022 COVID-19 Vaccine ( - 2024-2 6 season) 2025 Influenza Adult (#1) 2025 RSV Immunization or 60+ Years (1 - 1-dose 75+ series) 2032 Hepatitis A Vaccines Aged Out No long er eligible based on patient's age to complete this topic Meningococcal B Vaccine Aged Out No l onger eligible based on patient's age to complete this topic Meningococcal Vaccine Aged Out No veronica emeka eligible based on patient's age to complete this topic RSV Immunizations Under 20 Months Aged Out No longer eligible based on patient's age to complete this topic
[2025-06-11 13:01] LABS: Hematocrit 39.1 % (37.0-47.0); Hemoglobin 13.1 g/dL (12.0-15.0); Immature Granulocyte Percent A 0.3 % (0-0.5); Lymphocytes Absolute Auto 1.83 K/mm3 (0.9-3.2); Mean Corpuscular HGB Conc 33.5 g/dl (32-36); Mean Corpuscular Hemoglobin 31.0 pg (26-34); Mean Corpuscular Volume 92.4 fl (80-100); Nucleated Red Blood Cells Absolute Auto 0.000 K/mm3 (0.0-0.012); Nucleated Red Blood Cells Perc 0.0 % (0.0-0.2); Platelet Count Result 255 k/mm3 (150-375); Red Blood Count 4.23 M/mm3 (4.2-5.4); White Blood Count 6.5 K/mm3 (4.5-10.0)
[2025-06-11 13:12] LABS: Add Urine Microscopic? NO; Appearance Urine Clear (Clear); Glucose Urine UA Negative (Negative); Leukocyte Esterase Ur Negative LEU/UL (Negative); Nitrate Urine Negative (Negative); Specific Grav Ur 1.009 (1.001-1.035)
[2025-06-11 13:36] LABS: Alanine Aminotransferase 23 U/L (6-35); Albumin Level 4.6 g/dL (3.5-5.1); Alkaline Phosphatase 84 U/L (38-126); Anion Gap 9 mmol/L (4-12); Aspartate Amino Transferase 46 U/L (14-36); Bilirubin,Total 0.6 mg/dL (0.2-1.3); Blood Urea Nitrogen 11 mg/dL (7-17); Calcium 9.8 mg/dL (8.4-10.2); Carbon Dioxide 23 mmol/L (22-30); Chloride 105 mmol/L (98-107); Estimated Glomerular Filt Rate > 60; Glucose 83 mg/dL (65-110); Magnesium 2.0 mg/dL (1.6-2.3); Potassium 3.9 mmol/L (3.4-5.0); Sodium 137 mmol/L (137-145); Total Protein 7.9 g/dL (6.3-8.2)
[2025-06-11 13:54] LABS: MALB Creatinine Ratio < 8.7 mg/g (0-30)
[2025-06-11 14:12] LABS: Thyroid Stimulating Hormone < 0.015 uIU/mL (0.465-4.680)
[2025-06-11 14:30] LABS: Vitamin B12 867.0 pg/mL (239-931)
[2025-06-11 15:31] LABS: Hemoglobin A1C 5.0 % (<5.7)
== END 2025-06-11 09:01 | disposition home or self-care (01) ==
LOC: ANHGOSHLAB 09:01
PROVIDERS: PCP Internal Medicine; Visit Provider Clinical Nurse Specialist
DX: I48.91 Unspecified atrial fibrillation (principal); I10 Essential (primary) hypertension; E55.9 Vitamin D deficiency, unspecified; R74.01 Elevation of levels of liver transaminase levels; E78.2 Mixed hyperlipidemia; R53.83 Other fatigue; M79.10 Myalgia, unspecified site; R73.01 Impaired fasting glucose; R10.A0 Flank pain, unspecified side
CPT/HCPCS: 36415; 80053; 81003; 82043; 82306; 82607; 83036; 83735; 84443; 85025

== ENCOUNTER 2025-06-11 09:24 | Outpatient (CLI) | payer MEDICARE, OTHER, SELFPAY ==
--- NOTE | ~2025-06-11 | XR_ITS ---
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 Findings: No acute fracture or malalignment. Sclerosis noted of the sacroiliac joints, no erosions or bridging osteophyte formation Soft tissues unremarkable. Impression: No acute fracture or malalignment. Reviewed, dictated and finalized at location P. RONMENTAL SCIENCE INSTRUCTOR Impression: No acute fracture or malalignment.
== END 2025-06-11 09:25 | disposition home or self-care (01) ==
PROVIDERS: PCP Clinical Nurse Specialist; Visit Provider Clinical Nurse Specialist
DX: M79.18 Myalgia, other site (principal)
CPT/HCPCS: 72220

== ENCOUNTER 2025-06-27 08:51 | Outpatient (CLI) | payer MEDICARE, OTHER, SELFPAY ==
[2025-06-27 13:40] LABS: Alanine Aminotransferase 19 U/L (6-35); Albumin Level 4.6 g/dL (3.5-5.1); Alkaline Phosphatase 84 U/L (38-126); Anion Gap 7 mmol/L (4-12); Aspartate Amino Transferase 31 U/L (14-36); Bilirubin,Total 0.6 mg/dL (0.2-1.3); Blood Urea Nitrogen 16 mg/dL (7-17); Calcium 9.7 mg/dL (8.4-10.2); Carbon Dioxide 24 mmol/L (22-30); Chloride 105 mmol/L (98-107); Estimated Glomerular Filt Rate 55; Glucose 81 mg/dL (65-110); Potassium 4.6 mmol/L (3.4-5.0); Sodium 136 mmol/L (137-145); Total Protein 7.7 g/dL (6.3-8.2)
[2025-06-27 14:16] LABS: Thyroid Stimulating Hormone 1.640 uIU/mL (0.465-4.680)
== END 2025-06-27 08:52 | disposition home or self-care (01) ==
PROVIDERS: PCP Clinical Nurse Specialist; Visit Provider Clinical Nurse Specialist
DX: R79.89 Other specified abnormal findings of blood chemistry (principal); R74.01 Elevation of levels of liver transaminase levels
CPT/HCPCS: 36415; 80053; 84443

== ENCOUNTER 2025-06-27 09:48 | Outpatient (CLI) | payer MEDICARE, OTHER, SELFPAY ==
--- NOTE | ~2025-06-27 | XR_ITS ---
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 Findings: No acute fracture or malalignment. Severe tricompartmental degenerative changes, small effusion Soft tissues unremarkable. Impression: No acute fracture or malalignment. Reviewed, dictated and finalized at location P. NCIAL RISK MANAGER Impression: No acute fracture or malalignment.
== END 2025-06-27 09:49 | disposition home or self-care (01) ==
PROVIDERS: PCP Clinical Nurse Specialist; Visit Provider Orthopaedic Surgery
DX: M25.562 Pain in left knee (principal)
CPT/HCPCS: 73564